=== PATIENT | female | born 1985 | race Caucasian/White ===

== ENCOUNTER 2017-05-19 14:57 | Emergency (ER) | payer BC, SELFPAY ==
[2017-05-19 15:15] VITALS: BP 135/89; PULSE 110; RESP 22; TEMP 37.1; O2SAT 100; BMI 36.2
[2017-05-19 15:24] LABS: UTC Influenza A Antigen Negative (Negative); UTC Influenza B Antigen Negative (Negative)
[2017-05-19 15:40] VITALS: BP 135/89; PULSE 110; RESP 20; TEMP 37.1
--- NOTE | 2017-05-19 15:43 | HMH.EDUTC ---
[facility] [place] Disposition Clinical Impression: Sinusitis Qualifiers: Sinusitis location: unspecified location Chronicity: unspecified Qualified Code(s): J32.9 - Chronic sinusitis, unspecified Disposition: Home, Self-Care Condition on Discharge: Good Instructions: Sinusitis, Sinus Headache, DI for Sinusitis Additional Instructions: Start antibiotic. Sinus infections may take 2-3 days to notice much improvement so be sure to use conservative measures as discussed for symptoms Flonase 2 spray in each nostril daily to help with nasal congestion, sinus an ear pressure/inflammation Lots of Fluids Sleep elevated Humidifer/vaporizer Augmentin can cause GI effects. Probiotics may help to prevent these symptoms Follow up with family doctor in 24-48 hours if no improvement or worsening of symptoms Straight to ER if any life threatening symptoms Prescriptions: Brompheniramine/Pseudoephed/Dm [Bromfed DM Cough Syrup 5mL] 10 ml PO Q4HP PRN #350 ml PRN Reason: Cough Amoxicillin/Potassium Clav [Augmentin 875-125 Tablet] 1 tab PO Q12H #14 tab Fluticasone Propionate [Flonase 50mcg nasal spray 16gm] 2 spr NS DAILY #1 bottle predniSONE [Prednisone 20mg Tab] 20 mg PO BID #10 tab Referrals: Regino Oliva MD [Primary Care Provider] - Forms: Work/School Release Time of Disposition: 15:59 Medical Decision Making - Medical Records Medical records reviewed: Yes: I reviewed the patient's medical records. - Lucian Inquiry Pt receiving controlled substance: No Lucian was queried for this patient: No Vital Signs: 05/19/17 15:15 05/19/17 15:40 Temperature 98.8 F 98.8 F Temperature Source Temporal Artery Scan Pulse Rate 110 H Pulse Rate [Right] 110 H Respiratory Rate 22 20 Blood Pressure 135/89 Blood Pressure [Right Arm] 135/89 Blood Pressure Mean [Right Arm] 104 Blood Pressure Source [Right Arm] Automatic Cuff Blood Pressure Position [Right Arm] Sitting 02 Sat by Pulse Oximetry 100 Oxygen Delivery Method Room Air - Lab Data Lab results reviewed: Yes: I reviewed the patient's lab results. Lab Results 05/19/17 15:20: Influenza Type A Ag Negative, Influenza Type B Ag Negative Orders (Tests/Meds): ED MEDICATIONS Discontinued Medications Generic Name Dose Route Start Last Admin Trade Name Freq PRN Reason Stop Dose Admin Ibuprofen 600 mg 03/19/18 15:52 Motrin 600mg Tablet PO 05/19/17 15:53 ONCE ONE [facility] [place] HPI - General Stated complaint: chills, head ache, dizzy, Time Seen by Provider: 05/19/17 15:30 Mode of Arrival: Ambulatory Source of Information: Patient Limitations: No Limitations Description of Symptoms (Recalled from Triage Doc. by RN): HEADACHE, FEVER, ACHES TODAY HEENT Symptoms (Recalled from RN notes): Yes Resp Symptoms (Recalled from RN notes): No Skin Symptoms (Recalled from RN notes): No MS Symptoms (Recalled from RN notes): No Functional Status (Recalled from RN notes): N - History of Present Illness Provider Complaint: Patient state that she has not been feeling well for several days State that this morning she began running a fever, having chills, feeling pressure in her forehead and around her eyes, having headache and sinus pain and pressure State that as the day progressed she continued to get worse States that she has continued to have the pressure like feeling behind her eyes - Related Data Home Medications Medication Instructions Recorded Confirmed Levothyroxine Sodium [Synthroid 200 mcg PO DAILY 05/19/17 05/19/17 100mcg (0.1mg) tablet] Previous Rx's Medication Instructions Recorded Amoxicillin/Potassium Clav 1 tab PO Q12H #14 tab 05/19/17 [Augmentin 875-125 Tablet] Brompheniramine/Pseudoephed/Dm 10 ml PO Q4HP PRN #350 ml 05/19/17 [Bromfed DM Cough Syrup 5mL] Fluticasone Propionate [Flonase 2 spr NS DAILY #1 bottle 05/19/17 50mcg nasal spray 16gm] predniSONE [Prednisone 20mg 20 mg PO BID #10 tab 05/19/17 Tab] Allergies
--- NOTE | 2017-05-19 15:50 | ED_ITS ---
[facility] [place] Clinical Impression: Sinusitis Qualifiers: Sinusitis location: unspecified location Chronicity: unspecified Qualified Code (s): J32.9 - Chronic sinusitis, unspecified Disposition: Home, Self-Care Condition on Discharge: Good Instructions: Sinusitis, Sinus Headache, DI for Sinusitis Additional Instructions: Start antibiotic. Sinus infections may take 2-3 days to notice much improvement so be sure to use conservative measures as discussed for symptoms Flonase 2 spray in each nostril daily to help with nasal congestion, sinus an ear pressure/inflammation Lots of Fluids Sleep elevated Humidifer/vaporizer Augmentin can cause GI effects. Probiotics may help to prevent these symptoms Follow up with family doctor in 24-48 hours if no improvement or worsening of symptoms Straight to ER if any life threatening symptoms Prescriptions: Brompheniramine/Pseudoephed/Dm [Bromfed DM Cough Syrup 5mL] 10 ml PO Q4HP PRN # 350 ml PRN Reason: Cough Amoxicillin/Potassium Clav [Augmentin 875-125 Tablet] 1 tab PO Q12H #14 tab Fluticasone Propionate [Flonase 50mcg nasal spray 16gm] 2 spr NS DAILY #1 bottle predniSONE [Prednisone 20mg Tab] 20 mg PO BID #10 tab Referrals: Regino Oliva MD [Primary Care Provider] - Forms: Work/School Release Time of Disposition: 15:59 Medical Decision Making - Medical Records Medical records reviewed: Yes: I reviewed the patient's medical records. - Lucian Inquiry Pt receiving controlled substance: No Lucian was queried for this patient: No Vital Signs: 05/19/17 15:15 05/19/17 15:40 Temperature 98.8 F 98.8 F Temperature Source Temporal Artery Scan Pulse Rate 110 H Pulse Rate [Right] 110 H Respiratory Rate 22 20 Blood Pressure 135/89 Blood Pressure [Right Arm] 135/89 Blood Pressure Mean [Right Arm] 104 Blood Pressure Source [Right Arm] Automatic Cuff Blood Pressure Position [Right Arm] Sitting 02 Sat by Pulse Oximetry 100 Oxygen Delivery Method Room Air - Lab Data Lab results reviewed: Yes: I reviewed the patient's lab results. Lab Results 05/19/17 15:20: Influenza Type A Ag Negative, Influenza Type B Ag Negative Orders (Tests/Meds): ED MEDICATIONS Discontinued Medications Generic Name Dose Route Start Last Admin Trade Name Freq PRN Reason Stop Dose Admin Ibuprofen 600 mg 03/19/18 15:52 Motrin 600mg Tablet PO 05/19/17 15:53 ONCE ONE [facility] [place] HPI - General Stated complaint: chills, head ache, dizzy, Time Seen by Provider: 05/19/17 15:30 Mode of Arrival: Ambulatory Source of Information: Patient Limitations: No Limitations Description of Symptoms (Recalled from Triage Doc. by RN): HEADACHE, FEVER, ACHES TODAY HEENT Symptoms (Recalled from RN notes): Yes Resp Symptoms (Recalled from RN notes): No Skin Symptoms (Recalled from RN notes): No MS Symptoms (Recalled from RN notes): No Functional Status (Recalled from RN notes): N - History of Present Illness Provider Complaint: Patient state that she has not been feeling well for several days State that this morning she began running a fever, having chills, feeling pressure in her forehead and around her eyes, having headache and sinus pain and pressure State that as the day progressed she continued to get worse States that she has continued to have the pressure like feeling behind her eyes
== END 2017-05-19 16:05 | disposition home or self-care (01) ==
PROVIDERS: Emergency Provider Nurse Practitioner; Family Provider Internal Medicine Adolescent Medicine; PCP Internal Medicine Adolescent Medicine
DX: J32.9 Chronic sinusitis, unspecified (principal); Z91.040 Latex allergy status
CPT/HCPCS: 87804; 99201

== ENCOUNTER → 2017-05-27 12:21 | Outpatient (CLI) | payer BC, SELFPAY ==
[2017-05-27 13:30] LABS: Alanine Aminotransferase 27 U/L (12-78); Albumin Level 3.3 gm/dL (3.4-5.0); Albumin/Globulin Ratio 0.9 (1.1-1.8); Alkaline Phosphatase 63 U/L (46-116); Anion Gap 10.3 mEq/L (5-15); Aspartate Amino Transferase 19 U/L (15-37); Bilirubin,Total 0.3 mg/dL (0.2-1.0); Blood Urea Nitrogen 9 mg/dL (7-18); Calcium 8.4 mg/dL (8.5-10.1); Carbon Dioxide 27 mmol/L (21.0-32.0); Chloride 103 mmol/L (98-107); Creatinine,Serum 0.75 mg/dL (0.55-1.02); Estimated Glomerular Filt Rate 89 ml/min (>60); GFR (African American) 108 ML/MIN (>60); Globulin 3.8 gm/dl (1.3-3.2); Potassium 4.3 mmoL/L (3.5-5.1); Sodium 136 mmol/L (136-145); Thyroid Stimulating Hormone 41.19 uIU/ml (0.358-3.740); Total Protein,Serum 7.1 gm/dL (6.4-8.2)
[2017-05-27 13:39] LABS: Glucose 83 mg/dL (74-106)
[2017-05-28 15:48] LABS: Vitamin D 25 Hydroxy 13.5 ng/mL (30.0-100.0)
== END ==
PROVIDERS: Visit Provider Internal Medicine Adolescent Medicine
DX: E03.9 Hypothyroidism, unspecified (principal); E55.9 Vitamin D deficiency, unspecified
CPT/HCPCS: 36415; 80053; 82652; 84443

== ENCOUNTER → 2018-04-15 10:36 | Outpatient (CLI) | payer BC, SELFPAY ==
[2018-04-15 11:13] LABS: Basophils % 0.6 % (0.1-2.0); Eosinophils # 0.3 K/mm3 (0.0-0.4); Eosinophils % 3.8 % (0.1-12.0); Hematocrit 35.3 % (37.0-47.0); Hemoglobin 10.7 g/dL (12.2-16.2); Lymphocytes # 1.9 K/mm3 (0.7-4.5); Lymphocytes % 28.8 % (10-50); Mean Corpuscular HGB Conc 30.4 g/dL (31.8-35.4); Mean Corpuscular Hemoglobin 22.3 pg (27.0-31.2); Mean Corpuscular Volume 73.4 fl (81-99); Mean Platelet Volume 6.5 fl (7.4-10.4); Monocytes # 0.3 K/mm3 (0.1-1.0); Monocytes % 3.8 % (1.7-9.3); Neutrophils # 4.2 K/mm3 (1.8-7.8); Platelet Count 331 K/mm3 (142-424); Red Cell Distribution Width 15.9 % (11.5-17.5); White Blood Count 6.6 K/mm3 (4.8-10.8)
[2018-04-15 11:52] LABS: Alanine Aminotransferase 29 U/L (12-78); Albumin Level 3.7 gm/dL (3.4-5.0); Alkaline Phosphatase 63 U/L (46-116); Anion Gap 12.2 mEq/L (5-15); Aspartate Amino Transferase 19 U/L (15-37); Bilirubin,Total 0.4 mg/dL (0.2-1.0); Blood Urea Nitrogen 7 mg/dL (7-18); Calcium 8.9 mg/dL (8.5-10.1); Carbon Dioxide 28 mmol/L (21.0-32.0); Chloride 104 mmol/L (98-107); Chol/HDL Ratio 5.7 (1-3.5); Cholesterol 177 mg/dL (140-200); Creatinine,Serum 0.94 mg/dL (0.55-1.02); Estimated Glomerular Filt Rate 68 ml/min (>60); Ferritin 4 ng/mL (8-388); GFR (African American) 82 ML/MIN (>60); Globulin 3.8 gm/dl (1.3-3.2); Glucose 90 mg/dL (74-106); HDL Cholesterol 31 mg/dL (29-89); LDL Cholesterol 82 mg/dL (0-130); Potassium 4.2 mmoL/L (3.5-5.1); Sodium 140 mmol/L (136-145); Total Protein,Serum 7.5 gm/dL (6.4-8.2); Triglycerides 320 mg/dL (30-200); VLDL Cholesterol 64 mg/dL (0-40)
[2018-04-15 12:19] LABS: Thyroid Stimulating Hormone 177.53 uIU/ml (0.358-3.740)
[2018-04-15 14:34] LABS: Free T4 (Free Thyroxine) 0.83 ng/dl (0.76-1.46)
[2018-04-16 05:11] LABS: Iron 27 ug/dL (27-159); UIBC 360 ug/dL (131-425)
[2018-04-16 07:50] LABS: Iron Saturation 7 % (15-55); Vitamin B12 165 pg/mL (232-1245)
== END ==
PROVIDERS: Nurse Practitioner Family; Visit Provider Nurse Practitioner Family
DX: Z00.00 Encounter for general adult medical examination without abnormal findings (principal); E03.9 Hypothyroidism, unspecified; D64.9 Anemia, unspecified
CPT/HCPCS: 36415; 80053; 80061; 82607; 82728; 83540; 83550; 84439; 84443; 85025

== ENCOUNTER → 2018-05-11 09:47 | Outpatient (CLI) | payer BC, SELFPAY ==
[2018-05-11 11:23] LABS: Thyroid Stimulating Hormone 0.97 uIU/ml (0.358-3.740)
[2018-05-12 09:43] LABS: Folate 9.4 ng/mL (>3.0); Prolactin 27.1 ng/mL (4.8-23.3)
[2018-05-13 15:00] LABS: Intrinsic Factor Abs, Serum 1.1 AU/mL (0.0-1.1)
== END ==
PROVIDERS: Visit Provider Nurse Practitioner Family
DX: D50.9 Iron deficiency anemia, unspecified (principal); E53.8 Deficiency of other specified B group vitamins; R79.89 Other specified abnormal findings of blood chemistry
CPT/HCPCS: 36415; 82746; 84146; 84443; 86340

== ENCOUNTER → 2018-05-26 10:49 | Outpatient (CLI) | payer BC, SELFPAY ==
--- NOTE | 2018-05-26 10:52 | MR_ITS ---
MR head/brain wo/w con HISTORY: ITS.REASON: ELEVATED PROLACTIN LEVEL, headache, dizziness, blurred vision ORDERING PHYSICIAN: Myranda Nevarez PATIENT AGE: 32 years Comparison: None TECHNIQUE: Standard multiplanar multiecho sequences are performed without and with gadolinium enhancement. Thin section pre- and post enhanced images obtained of the pituitary with dynamic imaging.. 23 mL is ProHance given IV FINDINGS: No midline shift, mass effect, intracranial hemorrhage, or hydrocephalus is evident. No intra or extra-axial lesions apparent. There are a few small T2 hyperintensities in the deep white matter of the frontal lobes nonspecific. The cerebellopontine angle, cerebellum, and brainstem are unremarkable. No enhancing lesions are evident. No restricted diffusion. The craniocervical junction has an unremarkable appearance. There is moderate mucosal edema of the left aspect of the sphenoid sinus. No mastoid effusion. On the dynamic enhanced images of the pituitary gland there is a small 5 x 3 x 2 mm area of nonenhancement involving the inferior and right aspect of the pituitary gland consistent with a microadenoma. This does not cause deviation of the pituitary stalk and becomes much less apparent on the delayed images. No other significant anomalies are evident. IMPRESSION: The findings are consistent with a pituitary microadenoma involving the right aspect of the pituitary gland inferiorly measuring 5 x 3 x 2 mm. Consider 6 month follow-up to confirm stability
--- NOTE | 2018-05-26 12:04 | HMH.ITSHM ---
Current Home Medications as stated by this patient Azalia Aminah Celaya or community representative. []VITAMIN C B-12 LEVOXYTHRYOXINE IRON
== END ==
PROVIDERS: PCP Nurse Practitioner Family; Visit Provider Nurse Practitioner Family
DX: E22.9 Hyperfunction of pituitary gland, unspecified (principal)
CPT/HCPCS: 70553; A9576

== ENCOUNTER → 2019-04-22 13:27 | Outpatient (CLI) | payer BC, SELFPAY ==
--- NOTE | 2019-04-22 13:28 | US_ITS ---
PROCEDURE: US TRANSVAGINAL CLINICAL INDICATION: Pt having extremely heavy painful periods COMPARISON: PTV US PELVIS-TRANSVAGINAL ONLY from 12/14/2015 FINDINGS: UTERUS: 9.7 x 6cmx 5cm with a combined endometrial thickness of 13.4mm fluid is seen within the endo cervical region of the uterus. A focal hyper echoic nodule is seen within the endometrial canal in the fundal region 3.8 x 7.1 by 5.3 millimeters suspicious for an endometrial polyp. This could potentially represent a blood clot. A heterogeneous left lateral uterine myometrial mass 3.1 x 2.4 x 2.4 centimeters is noted with some peripheral and increased color Doppler blood flow. Atypical fibroid is suspected. LEFT OVARY: 3cmx2.8 x1.4cm with a volume of 5.5ml. RIGHT OVARY: 3cmx 1kzw0tz with a volume of 8.7ml. Color Doppler blood flow to both ovaries is noted. No abnormal adnexal mass or fluid collection is apparent. IMPRESSION: Abnormally thickened endometrium with possible polyp versus is echogenic blood clot. Left lateral myometrial mass likely fibroid. Dictated by: Jace Harris 04/22/2019 17:21 Electronically signed by Jace Harris in [place] 04/22/2019 17:21
== END ==
PROVIDERS: PCP Nurse Practitioner Family; Visit Provider Nurse Practitioner Obstetrics & Gynecology
DX: N92.0 Excessive and frequent menstruation with regular cycle (principal); N94.6 Dysmenorrhea, unspecified
CPT/HCPCS: 76830

== ENCOUNTER → 2019-08-18 10:12 | Outpatient (CLI) | payer BC, SELFPAY ==
--- NOTE | 2019-08-18 10:33 | MR_ITS ---
PROCEDURE: MR LUMBAR SPINE WO CON CLINICAL INDICATION: LUMBAR RADICULOPATHY Recent fall with injury and pain, right sided pain numbness and tingling, low back pain COMPARISON: ABDPELW/O CT ABD PELVIS W/O CONTRAST from 09/18/2015 LS5 LUMBAR SPINE 5 VIEWS from 05/07/2016 BRAINWW MR head/brain wo/w con from 05/26/2018 TECHNIQUE: Standard multiplanar multiecho sequences are performed without contrast. 3-D MIP and myelographic images are also rendered and reviewed FINDINGS: There is normal alignment. The spinal cord ends at the T12 level. L1-L2 and L2-L3 have an unremarkable appearance. L3-L4: Degenerative disc disease with mild bulging disc and small broad-based central disc protrusion. There is facet and ligamentum hypertrophy with mild bilateral lateral recess and foraminal narrowing. L4-5: Degenerative disc disease with bulging disc slightly eccentric toward the left along with facet and ligamentum hypertrophy with mild bilateral foraminal narrowing. L5-S1: 4 mm anterolisthesis of L5 with bulging disc. There does appear to be bilateral spondylitic defects at L5 with bony hypertrophy at the area of the defect. The bony hypertrophy is slightly greater on the right IMPRESSION: 1. L3-L4: Degenerative disc disease with mild bulging disc and small broad-based central disc protrusion. There is facet and ligamentum hypertrophy with mild bilateral lateral recess and foraminal narrowing. 2. L4-5: Degenerative disc disease with bulging disc slightly eccentric toward the left along with facet and ligamentum hypertrophy with mild bilateral foraminal narrowing. 3. L5-S1: 4 mm anterolisthesis of L5 with bulging disc. There does appear to be bilateral spondylitic defects at L5 with bony hypertrophy at the area of the defect. The bony hypertrophy is slightly greater on the right 4. No extruded herniated disc or canal stenosis Dictated by: Manuel Rivera MD 08/19/2019 13:37 Electronically signed by Manuel Rivera MD in [place] 08/19/2019 13:37
== END ==
PROVIDERS: PCP Nurse Practitioner Family; Visit Provider Internal Medicine Adolescent Medicine
DX: M54.16 Radiculopathy, lumbar region (principal)
CPT/HCPCS: 72148; 76376

== ENCOUNTER 2019-09-24 13:00 | Outpatient (RCR) | payer BC, SELFPAY ==
--- NOTE | 2019-09-01 15:51 | HMH.PTOPEV ---
PT Outpatient Evaluation Rehab PT Outpatient Evaluation Start: 09/01/19 15:35 Freq: Status: Active Protocol: Document 09/01/19 15:35 DEVANTE (Rec: 09/01/19 15:51 DEVANTE [id number]) Electronically Signed By Domenic Umanzor, PT 09/01/19 15:35 Outpatient Therapy Subjective History Subjective History Patient is a 34 year old female presenting to outpatient PT with reports of lumbar spine pain with RLE radicular symptoms to the R knee starting approximately 2 months ago. Pt reports that she experienced a fall approx 3 weeks prior to symptom onset in which she landed on her R buttocks. SI special tests negative. Most recent imaging indicates L3-S1 DDD with minimal bulging discs and L5/ S1 anteriolisthesis. Comorbidities include hx of pituitary gland tumor, thyroid excision and cholecystectomy. Chief Complaint Pain,Stiff,Paresthesia Symptom Type Shooting Symptoms Relieved By Rest/Positioning,Ice,OTC Meds, Prescription Meds Symptoms Aggravated By Standing,Physical Activity, Walking Prior Functional Limitations None Current Functional Limitations Reaching,Lifting,Housework, Sleeping,Standing,Squatting, Recreation Activity,Walking, Bending/Stooping Symptom Description Constant but Variable Level of pain today (0-10) 2 Pain scale - at its best (0-10) 2 Pain scale - at its worst (0-10) 10 Lumbopelvic Eval Posture Thoracic Spine Posture Standing Position Increased Kyphosis Lumbar Spine Posture Standing Position Increased Lordosis Assistive device Assistive Devices None / NA Palapation tenderness bilateral lumbar spinal tenderness Yes: L3-S1 3/4 paraspinal tenderness Yes: L 3-S1 3/4 buttock tenderness Yes: R 3/4 Accessory Movement L3 bilateral L4 bilateral L5 bilateral S1 right Range of Motion Lumbar Spine Active Flexion Range of 35 inc radic Motion (degrees) Lumbar Spine Active Extension Range of 20 Motion (degrees) Left Lumbar Spine Lateral Flexion Active 22 Range of Motion (degrees) Right Jesica
== END 2019-09-24 13:05 | disposition home or self-care (01) ==
LOC: PT 13:00
PROVIDERS: PCP Nurse Practitioner Family; Visit Provider Internal Medicine Adolescent Medicine
DX: M54.16 Radiculopathy, lumbar region (principal)
CPT/HCPCS: 97010; 97012; 97014; 97033; 97035; 97110; 97163; G0283

== ENCOUNTER 2020-11-10 09:59 | Emergency (ER) | payer BC, SELFPAY ==
[2020-11-10 11:07] VITALS: BP 121/86; PULSE 81; RESP 18; TEMP 37; O2SAT 99; BMI 41.8
[2020-11-10 11:47] LABS: UTC Strep Screen (Rapid) Negative (Negative)
--- NOTE | 2020-11-10 11:58 | HMH.EDUTC ---
[facility] [place] Clinical Impression: Viral syndrome, Exposure to COVID-19 virus Pharyngitis Qualifiers: Pharyngitis/tonsillitis etiology: unspecified etiology Qualified Code(s): J02.9 - Acute pharyngitis, unspecified Disposition: Home, Self-Care Condition on Discharge: Good Instructions: DI for COVID-19 (Suspected or Confirmed ), Preventing the Spread of Coronavirus Discharge Instructions Additional Instructions: Drink plenty of fluids. Take tylenol or ibuprofen for pain or fever. Take the medications as directed. Follow up with your regular doctor. GO TO THE ER FOR ANY WORSENING SYMPTOMS Quarantine until you know the results of your covid-19 test. If it is positive, the health department should call you and give you further instructions about your length of Quarantine and other things. Notify your school or workplace of your results and follow their instructions regarding return to work/school. Prescriptions: Benzonatate [Tessalon Perle 100mg Cap] 100 mg PO TIDP PRN #30 cap PRN Reason: Cough Transmission Status: Received by [id number] Ondansetron [Zofran 4mg ODT] 4 mg PO DAILYP PRN #12 tab PRN Reason: Nausea Transmission Status: Received by [id number] Referrals: Myranda Nevarez APRN [Primary Care Provider] - Time of Disposition: 12:05 Medical Decision Making - Medical Records Medical records reviewed: No: I reviewed the patient's medical records. - Lucian Inquiry Pt receiving controlled substance: No Vital Signs: 11/10/20 11:07 11/10/20 12:25 Temperature 98.6 F 98.6 F Temperature Source Oral Pulse Rate 81 Pulse Rate [Left] 81 Respiratory Rate 18 18 Blood Pressure 121/86 Blood Pressure [Right Arm] 121/86 Blood Pressure Mean [Right Arm] 97 02 Sat by Pulse Oximetry 99 - Lab Data Lab Results 11/10/20 11:46: Strep Scn [facility] Negative 11/10/20 12:16: SARS-CoV-2 IgG Ab (Rapid) Negative, SARS-CoV-2 IgM Ab (Rapid) Negative Orders (Tests/Meds): ORDERS Category Date Time Status Strep Screen Confirmation Stat Micro 11/10/20 11:46 Received [facility] [place] - General Stated complaint: sore throat,headache,diarrhea Time Seen by Provider: 11/10/20 11:40 Mode of Arrival: Ambulatory Source of Information: Patient Limitations: No Limitations Description of Symptoms (Recalled from Triage Doc. by RN): pt c/o MONTANO, body aches, low grade fever, and diarrhea. pt states she has felt sick since friday. HEENT Symptoms (Recalled from RN notes): Yes (MONTANO) Resp Symptoms (Recalled from RN notes): No Skin Symptoms (Recalled from RN notes): No MS Symptoms (Recalled from RN notes): No Functional Status (Recalled from RN notes): myalgia and low grade fever - History of Present Illness Provider Complaint: She states that for the past 2 days, she has began to feel bad. She denies any known covid-19 exposure, but she does work at the [employer] system. She has been vaccinated against covid. - Related Data Home Medications Medication Instructions Recorded Confirmed Levothyroxine Sodium 200 mcg PO DAILY 12/29/18 04/19/19 [Levothyroxine 200mcg (0.2mg) Tab] Levothyroxine Sodium 25 mcg PO DAILY 12/29/18 04/19/19 [Levothyroxine 25mcg (0.025mg) Tab] propranolol 10 mg tablet 10 mg PO BID 02/16/19 04/19/19 Previous Rx's Medication Instructions Recorded Dicyclomine HCl [Bentyl 10mg 10 mg PO TID PRN #15 cap 04/28/19 capsule] Ondansetron [Zofran 4mg ODT] 4 mg PO Q8HP PRN #20 tab.rapdis 04/28/19 Benzonatate [Tessalon Perle 100mg 100 mg PO TIDP PRN #30 cap 11/10/20 Cap] Ondansetron [Zofran 4mg ODT] 4 mg PO DAILYP PRN #12 tab 11/10/20 Allergies Allergy/AdvReac Type Severity Reaction Status Date / Time latex Allergy Intermediate I-ITCHING Verified 04/19/19 15:00 hydrocodone [From LORTAB] Allergy Mild fever Verified 04/19/19 15:00 - Worker's Comp Is this a Worker's Comp case?: No H History - Hepatitis A Screen Drug
[2020-11-10 12:25] VITALS: BP 121/86; PULSE 81; RESP 18; TEMP 37
[2020-11-10 13:05] LABS: Coronavirus 19 IgG Antibody Negative (Negative); Coronavirus 19 IgM Antibody Negative (Negative)
== END 2020-11-10 12:40 | disposition home or self-care (01) ==
PROVIDERS: Emergency Provider Nurse Practitioner Family; PCP Nurse Practitioner Family
DX: B34.9 Viral infection, unspecified (principal); J02.9 Acute pharyngitis, unspecified; Z20.822 Contact with and (suspected) exposure to COVID-19
CPT/HCPCS: 86328; 87880; 99202; G0463

== ENCOUNTER → 2020-11-13 11:30 | Outpatient (CLI) | payer BC, SELFPAY ==
[2020-11-13 11:46] LABS: Basophils % 0.6 % (0.1-2.0); Eosinophils # 0.1 K/mm3 (0.0-0.4); Eosinophils % 1.8 % (0.1-12.0); Hemoglobin 11.8 g/dL (12.2-16.2); Lymphocytes # 1.6 K/mm3 (0.7-4.5); Lymphocytes % 43.4 % (10-50); Mean Corpuscular HGB Conc 30.3 g/dL (31.8-35.4); Mean Corpuscular Hemoglobin 22.7 pg (27.0-31.2); Mean Corpuscular Volume 75.2 fl (81-99); Mean Platelet Volume 7.3 fl (7.4-10.4); Monocytes # 0.1 K/mm3 (0.1-1.0); Monocytes % 2.7 % (1.7-9.3); Neutrophils # 1.9 K/mm3 (1.8-7.8); Neutrophils % 51.5 % (37.0-80.0); Platelet Count 255 K/mm3 (142-424); Red Blood Count 5.19 M/mm3 (4.20-5.40); Red Cell Distribution Width 16.6 % (11.5-17.5); White Blood Count 3.7 K/mm3 (4.8-10.8)
[2020-11-13 13:25] LABS: Chloride 103 mmol/L (98-107); Potassium 4.3 mmoL/L (3.5-5.1); Sodium 141 mmol/L (136-145)
[2020-11-13 13:27] LABS: Amylase 71 U/L (30-110)
[2020-11-13 13:28] LABS: Alanine Aminotransferase 17 U/L (12-78); Albumin Level 3.9 g/dl (3.5-5.0); Albumin/Globulin Ratio 1.1 (1.1-1.8); Alkaline Phosphatase 68 U/L (38-126); Anion Gap 14.3 mEq/L (5-15); Aspartate Amino Transferase 39 U/L (14-36); Bilirubin,Total 0.2 mg/dl (0.2-1.3); Blood Urea Nitrogen 10 mg/dl (7-17); Calcium 8.6 mg/dl (8.4-10.2); Carbon Dioxide 28 mmol/L (22.0-30.0); Estimated Glomerular Filt Rate 70 ml/min (>60); GFR (African American) 85 ML/MIN (>60); Globulin 3.4 g/dL (1.3-3.2); Glucose 90 mg/dl (74-100); Lipase 84 U/L (23-300); Total Protein,Serum 7.3 g/dl (6.3-8.2)
== END ==
PROVIDERS: Visit Provider Nurse Practitioner Family
DX: R10.10 Upper abdominal pain, unspecified (principal); R19.7 Diarrhea, unspecified
CPT/HCPCS: 36415; 80053; 82150; 83690; 85025

== ENCOUNTER 2021-02-18 12:37 | Emergency (ER) | payer BC, SELFPAY ==
[2021-02-18] VITALS (12 sets, daily range): BP systolic 114–146; BP diastolic 79–93; PULSE 79–93; RESP 12–19; TEMP 36.6–36.9; O2SAT 95–100; BMI 41.1
--- NOTE | 2021-02-18 12:41 | ECG_ITS ---
APPROVED REPORT Exam: Resting ECG HR:84 bpm ECG Measurements Heart Rate 84 AXES CA 160 P 50 QRSd 82 QRS 27 QT 392 T 25 QTc 463 Conclusion Normal sinus rhythm Nonspecific T wave abnormality Prolonged QT Abnormal ECG Electronically signed by : Regino Oliva MD 02/20/2021 21:07:45
--- NOTE | 2021-02-18 12:44 | XR_ITS ---
PROCEDURE INFORMATION: Exam: XR Chest Exam date and time: 02/18/2021 12:44 PM Age: 35 years old Clinical indication: Sternal or substernal pain; Additional info: Chest pain TECHNIQUE: Imaging protocol: XR of the chest. Views: 1 view. COMPARISON: CR CXR CHEST(2 VIEWS-NOT PORTABLE) 06/19/2016 12:06 PM FINDINGS: Lungs: Unremarkable. No consolidation. Pleural spaces: Unremarkable. No pleural effusion. No pneumothorax. Heart/Mediastinum: Unremarkable. No cardiomegaly. Bones/joints: Unremarkable. IMPRESSION: No acute findings.
--- NOTE | 2021-02-18 12:46 | HMH.EDGENADL ---
ED Disposition Clinical Impression: Atypical chest pain Disposition: Home, Self-Care Condition on Discharge: Good Instructions: DI for Atypical Chest Pain Additional Instructions: Additional instructions for CHEST PAIN: See your physician as soon as possible for further evaluation. Return immediately if worsening chest pain, vomiting, shortness of breath, fever, coughing of blood. Referrals: Myranda Nevarez APRN [Primary Care Provider] - - Critical Care Critical Care Time: No Attestation: On , the high probability of a clinically significant, sudden or life threatening deterioration of the following system(s) required my full and direct attention, intervention and personal management. The time I documented below is in addition to time spent performing reported procedures but includes the following listed in this critical care notation. Medical Decision Making - Lucian Inquiry Pt receiving controlled substance: No Vital Signs: 02/18/21 12:38 02/18/21 13:00 02/18/21 13:15 Temperature 98.5 F Temperature Source Oral Pulse Rate 89 81 Pulse Rate [Radial] 93 H Respiratory Rate 18 19 12 Blood Pressure 137/82 126/79 Blood Pressure [Right Arm] 146/93 H Blood Pressure Mean Blood Pressure Mean [Right Arm] 110 Blood Pressure Position [Right Arm] Sitting 02 Sat by Pulse Oximetry 98 95 99 Oxygen Delivery Method Room Air 02/18/21 13:30 02/18/21 13:34 02/18/21 14:00 Temperature Temperature Source Pulse Rate 86 79 79 Pulse Rate [Radial] Respiratory Rate 16 14 17 Blood Pressure 122/80 122/80 133/89 Blood Pressure [Right Arm] Blood Pressure Mean 97 102 Blood Pressure Mean [Right Arm] Blood Pressure Position [Right Arm] 02 Sat by Pulse Oximetry 98 98 99 Oxygen Delivery Method 02/18/21 14:30 02/18/21 15:00 02/18/21 15:30 Temperature Temperature Source Pulse Rate 85 81 80 Pulse Rate [Radial] Respiratory Rate 15 17 15 Blood Pressure 124/84 114/82 124/86 Blood Pressure [Right Arm] Blood Pressure Mean 94 89 91 Blood Pressure Mean [Right Arm] Blood Pressure Position [Right Arm] 02 Sat by Pulse Oximetry 98 99 99 Oxygen Delivery Method 02/18/21 16:00 Temperature Temperature Source Pulse Rate 85 Pulse Rate [Radial] Respiratory Rate 17 Blood Pressure 123/87 Blood Pressure [Right Arm] Blood Pressure Mean 99 Blood Pressure Mean [Right Arm] Blood Pressure Position [Right Arm] 02 Sat by Pulse Oximetry 100 Oxygen Delivery Method - Lab Data Lab Results 02/18/21 12:43: WBC 8.2, RBC 4.99, Hgb 11.7 L, Hct 37.2, MCV 74.6 L, MCH 23.5 L, MCHC 31.4 L, RDW 16.6, Plt Count 437 H, MPV 7.0 L, Neut % (Auto) 62.9, Lymph % (Auto) 28.3, [place] % (Auto) 3.9, Eos % (Auto) 4.1, Baso % (Auto) 0.7, Neut # (Auto) 5.1, Lymph # (Auto) 2.3, [place] # (Auto) 0.3, Eos # (Auto) 0.3, Baso # (Auto) 0.1 02/18/21 12:43: Sodium 139, Potassium 3.5, Chloride 104, Carbon Dioxide 25, Anion Gap 13.5, BUN 9, Creatinine 1.00, Estimated Creat Clear 132, Estimated GFR 62, Est GFR ( Amer) 75, Glucose 86, Calcium 9.0, Troponin I 0.01 02/18/21 12:43: D-Dimer 0.46 02/18/21 15:25: Troponin I < 0.01 Result diagrams: 02/18/21 12:43 02/18/21 12:43 Orders (Tests/Meds): ORDERS Category Date Time Status Troponin I Q3H Lab 02/18/21 18:45 Ordered - Radiology Data #1 Image(s): Chest Image Reviewed: Yes I reviewed the patient's radiology image, Yes I have reviewed radiologist's interpretation Preliminary Findings: Normal/NAD PROCEDURE INFORMATION: Exam: XR Chest Exam date and time: 02/18/2021 12:44 PM Age: 35 years old Clinical indication: Sternal or substernal pain; Additional info: Chest pain TECHNIQUE: Imaging protocol: XR of the chest. Views: 1 view. COMPARISON: CR CXR CHEST(2 VIEWS-NOT PORTABLE) 06/19/2016 12:06 PM FINDINGS: Lungs: Unremarkable. No consolidation. Pleural spaces: Unremarkable. No pleural effusion. No pneumothorax.
[2021-02-18 12:58] LABS: Basophils # 0.1 K/mm3 (0-0.2); Basophils % 0.7 % (0.1-2.0); Eosinophils # 0.3 K/mm3 (0.0-0.4); Eosinophils % 4.1 % (0.1-12.0); Hematocrit 37.2 % (37.0-47.0); Hemoglobin 11.7 g/dL (12.2-16.2); Lymphocytes # 2.3 K/mm3 (0.7-4.5); Lymphocytes % 28.3 % (10-50); Mean Corpuscular HGB Conc 31.4 g/dL (31.8-35.4); Mean Corpuscular Hemoglobin 23.5 pg (27.0-31.2); Mean Corpuscular Volume 74.6 fl (81-99); Monocytes # 0.3 K/mm3 (0.1-1.0); Monocytes % 3.9 % (1.7-9.3); Neutrophils # 5.1 K/mm3 (1.8-7.8); Neutrophils % 62.9 % (37.0-80.0); Platelet Count 437 K/mm3 (142-424); Red Blood Count 4.99 M/mm3 (4.20-5.40); Red Cell Distribution Width 16.6 % (11.5-17.5); White Blood Count 8.2 K/mm3 (4.8-10.8)
[2021-02-18 13:08] LABS: Anion Gap 13.5 mEq/L (5-15); Blood Urea Nitrogen 9 mg/dl (7-17); Carbon Dioxide 25 mmol/L (22.0-30.0); Chloride 104 mmol/L (98-107); Creatinine Clearance Estimated 132 mL/min (50-200); Estimated Glomerular Filt Rate 62 ml/min (>60); GFR (African American) 75 ML/MIN (>60); Glucose 86 mg/dl (74-100); Potassium 3.5 mmoL/L (3.5-5.1); Sodium 139 mmol/L (136-145)
[2021-02-18 13:13] LABS: D-Dimer 0.46 ug/mL (0.0-0.5)
[2021-02-18 13:28] LABS: Troponin I 0.01 ng/ml (0.00-0.034)
--- NOTE | 2021-02-18 14:00 | PC.NURSE ---
PT RESTING QUIETLY OFFERS NO C/O AT PRESENT
--- NOTE | 2021-02-18 15:00 | PC.NURSE ---
PT UPDATED ON PLAN OF CARE
[2021-02-18 16:24] LABS: Troponin I < 0.01 ng/ml (0.00-0.034)
== END 2021-02-18 16:47 | disposition home or self-care (01) ==
PROVIDERS: Emergency Provider Emergency Medicine; PCP Nurse Practitioner Family
DX: R07.89 Other chest pain (principal); Z91.040 Latex allergy status; R11.0 Nausea
CPT/HCPCS: 71045; 80048; 84484; 85025; 85378; 93005; 99283

== ENCOUNTER → 2022-03-06 08:57 | Outpatient (CLI) | payer BC, SELFPAY ==
--- NOTE | 2022-03-06 09:01 | MR_ITS ---
FINAL REPORT TECHNIQUE: Multiplanar MR, without and with gadolinium enhancement CLINICAL HISTORY: Pituitary adenoma COMPARISON: CT head 12/29/2018 FINDINGS: Diffusion sequences show no signal abnormality to indicate acute infarct. The pituitary is normal in size with stalk midline. However, this was performed as routine brain MRI and not optimized under pituitary mass protocol. No mass, hemorrhage or edema is seen. Ventricles are normal. Major vascular flow voids are intact. Following contrast administration, no mass or abnormal enhancement is seen. IMPRESSION: Unremarkable MR evaluation the brain with contrast Reviewed, Interpreted and Dictated by Iris López MD Transcribed by Lauren Spaulding Authenticated and [facility]
--- NOTE | 2022-03-06 09:01 | MR_ITS ---
FINAL REPORT TECHNIQUE: 3-D [id number] sequences without contrast CLINICAL HISTORY: ANEURYSM COMPARISON: None FINDINGS: There is a small saccular aneurysm arising from the medial aspect of the distal left cavernous ICA. This measures 3 mm. No other aneurysm identified. There is stenosis of the distal intercranial right vertebral artery. The remaining central intercranial major branches are widely patent. MCAs and ACAs are unremarkable. Basilar artery is widely patent. motion picture set up worker are intact. 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 Reviewed, Interpreted and Dictated by Iris López MD Transcribed by Lauren Spaulding Authenticated and [facility]
== END ==
LOC: RAD 08:57
PROVIDERS: PCP Nurse Practitioner Family; Visit Provider Neurological Surgery
DX: D35.2 Benign neoplasm of pituitary gland (principal); I72.9 Aneurysm of unspecified site
CPT/HCPCS: 70544; 70553; A9576

== ENCOUNTER → 2022-05-01 07:18 | Outpatient (CLI) | payer BC, SELFPAY ==
[2022-05-01 08:04] LABS: Basophils # 0.1 K/mm3 (0-0.2); Basophils % 1.1 % (0.1-2.0); Eosinophils # 0.3 K/mm3 (0.0-0.4); Eosinophils % 5.5 % (0.1-12.0); Hematocrit 28.4 % (37.0-47.0); Hemoglobin 8.5 g/dL (12.2-16.2); Lymphocytes # 1.6 K/mm3 (0.7-4.5); Lymphocytes % 30.4 % (10-50); Mean Corpuscular HGB Conc 29.9 g/dL (31.8-35.4); Mean Corpuscular Hemoglobin 20.1 pg (27.0-31.2); Mean Corpuscular Volume 67.1 fl (81-99); Monocytes # 0.2 K/mm3 (0.1-1.0); Monocytes % 3.8 % (1.7-9.3); Neutrophils # 3.2 K/mm3 (1.8-7.8); Neutrophils % 59.3 % (37.0-80.0); Platelet Count 385 K/mm3 (142-424); Red Blood Count 4.24 M/mm3 (4.20-5.40); Red Cell Distribution Width 16.3 % (11.5-17.5); White Blood Count 5.4 K/mm3 (4.8-10.8)
[2022-05-01 08:32] LABS: Alanine Aminotransferase 21 U/L (12-78); Albumin Level 3.6 g/dl (3.5-5.0); Albumin/Globulin Ratio 1.2 (1.1-1.8); Alkaline Phosphatase 54 U/L (38-126); Anion Gap 9.8 mEq/L (5-15); Aspartate Amino Transferase 26 U/L (14-36); Bilirubin,Total 0.4 mg/dl (0.2-1.3); Blood Urea Nitrogen 8 mg/dl (7-17); Calcium 8.6 mg/dl (8.4-10.2); Carbon Dioxide 23 mmol/L (22.0-30.0); Chloride 108 mmol/L (98-107); Estimated Glomerular Filt Rate 80 ml/min (>60); GFR (African American) 97 ML/MIN (>60); Globulin 2.9 g/dL (1.3-3.2); Glucose 110 mg/dl (74-100); Potassium 3.8 mmoL/L (3.5-5.1); Sodium 137 mmol/L (136-145); Total Protein,Serum 6.5 g/dl (6.3-8.2)
[2022-05-01 08:49] LABS: Free T4 (Free Thyroxine) 2.07 ng/dl (0.78-2.19)
[2022-05-01 09:04] LABS: Thyroid Stimulating Hormone 0.15 uIU/mL (0.465-4.68)
[2022-05-01 09:23] LABS: Vitamin B12 165 pg/mL (239-931)
== END ==
PROVIDERS: PCP Nurse Practitioner Family; Visit Provider Nurse Practitioner Family
DX: E03.9 Hypothyroidism, unspecified (principal); G57.11 Meralgia paresthetica, right lower limb
CPT/HCPCS: 36415; 80053; 82607; 84439; 84443; 85025

== ENCOUNTER 2022-05-07 12:32 | Emergency (ER) | payer BC, SELFPAY ==
[2022-05-07] VITALS (9 sets, daily range): BP systolic 94–124; BP diastolic 63–79; PULSE 80–129; RESP 16–18; TEMP 37.2–38.9; O2SAT 95–99; BMI 39.9
[2022-05-07 12:53] LABS: Coronavirus 19, PCR Not Detected (NotDetected); Influenza A, PCR Not Detected (NotDetected); Influenza B, PCR Not Detected (NotDetected); Microscopic, Urine URINE MICROSCOPIC (MICROSCOPIC)
[2022-05-07 12:54] LABS: Appearance,Urine SL CLOUDY (Clear); Blood, Urine 2+ (Negative); Color,Urine YELLOW (Yellow); Glucose,Urine (UA) Negative (Negative); Ketones,Urine Negative (Negative); Leukocyte Esterase,Urine 3+ (Negative); Nitrate,Urine Negative (Negative); Protein,Urine Negative (Negative); Specific Gravity, Urine >= 1.030 (1.005-1.030); Urobilinogen,Urine 0.2 EU/dl (0.2)
[2022-05-07 12:57] LABS: Bilirubin,Urine 1+ (Negative)
--- NOTE | 2022-05-07 13:09 | XR_ITS ---
FINAL REPORT CLINICAL HISTORY: fever FINDINGS: Two views of the chest were obtained. The heart size and pulmonary vascularity are within normal limits. The mediastinum is normal. No acute pulmonary abnormality is identified. There is no pneumothorax. The bony thorax is intact. IMPRESSION: No active cardiopulmonary disease. Reviewed, Interpreted and Dictated by Kyle Subramanian III, MD Transcribed by Rose Lindsay Authenticated and . [facility]
--- NOTE | 2022-05-07 13:09 | CT_ITS ---
FINAL REPORT TECHNIQUE: Postcontrast axial images through the abdomen and pelvis were performed. This study was performed with techniques to keep radiation doses as low as reasonably achievable, (ALARA). Individualized dose reduction techniques using automated exposure control or adjustment of mA and/or kV according to the patient's size were employed. CLINICAL HISTORY: fever, abdo tenderness L side FINDINGS: Abdomen: The lung bases are clear. The liver is normal in size and attenuation. The patient is status post cholecystectomy. The spleen is enlarged measuring 13 cm. The adrenals are normal. The pancreas is unremarkable. The kidneys enhance appropriately. The aorta is normal in caliber. No free fluid or adenopathy is identified. No findings for mechanical bowel obstruction are identified. Pelvis: The appendix is normal. There is mild diffuse colon wall thickening, may represent mild colitis. The urinary bladder is unremarkable. No free fluid, free air, abscess or adenopathy is identified. Note is made of bilateral L5 pars defects. IMPRESSION: Diffuse colon wall thickening, may represent colitis. Splenomegaly. Reviewed, Interpreted and Dictated by Kyle Subramanian III, MD Transcribed by Danielle Everett Authenticated and [facility]
--- NOTE | 2022-05-07 13:23 | HMH.EDGENADL ---
Discharge Plan Disposition Patient Disposition: Home, Self-Care Condition: Good Prescriptions Prescriptions: New cefdinir 300 mg capsule 300 mg PO BID 10 Days Qty: 20 0RF No Action propranolol 10 mg tablet 10 mg PO BID levothyroxine 25 MCG tablet 25 mcg PO DAILY levothyroxine 200 MCG tablet 200 mcg PO DAILY ondansetron 4 MG tablet,disintegrating 4 mg PO Q8HP PRN (Reason: Nausea) Qty: 20 0RF dicyclomine 10 MG capsule 10 mg PO TID PRN (Reason: Cramping) Qty: 15 0RF ondansetron 4 MG tablet,disintegrating 4 mg PO DAILYP PRN (Reason: Nausea) Qty: 12 0RF benzonatate 100 MG capsule 100 mg PO TIDP PRN (Reason: Cough) Qty: 30 0RF Referrals Follow up/Referrals: Myranda Nevarez APRN [Primary Care Provider] - See instructions Activity Restrictions/Add. Instructions Additional Instructions/Restrictions: Additional instructions for URINARY TRACT INFECTION: Take antibiotic as prescribed, begin tomorrow. See your physician in 2-3 days for follow up and culture results. Return immediately if you have an uncontrollable fever greater than 102 degrees, severe back or abdominal pain, inability to urinate, or repetitive vomiting. Clinical Impressions Clinical Impression: Pyelonephritis Instructions Patient Instructions: DI for Kidney Infection Discharge ED Provider: Chris Ta General Adult HPI General Chief complaint: Fever Stated complaint: shaky,vomiting,lightheaded Time Seen by Provider: 05/07/22 13:05 Mode of Arrival: Wheelchair Source of Information: Patient Limitations: No Limitations Description of Symptoms (Recalled from ER Triage Doc. by RN): Pt reports headache, vomitting x2 episodes, body aches, fever. Pt reports symptoms began approx 11pm lastnight. History of Present Illness HPI narrative: Patient states that she began getting ill last night. She began having rigors. They resolved but recurred again today at 11 AM. Found to have a fever here. He has had vomiting x2. She has a headache. Denies rhinorrhea, sore throat, cough. Denies diarrhea, abdominal pain. Denies urinary symptoms such as frequency or dysuria. She just finished her last menstrual cycle yesterday. No known exposures to any illnesses. Related Data Home Medications Medication Instructions Recorded Confirmed levothyroxine 200 mcg tablet 200 mcg PO DAILY THYROID DISEASE 12/29/18 04/19/19 levothyroxine 25 mcg tablet 25 mcg PO DAILY THYROID DISEASE 12/29/18 04/19/19 propranolol 10 mg tablet 10 mg PO BID 02/16/19 04/19/19 Previous Rx's Medication Instructions Recorded dicyclomine 10 mg capsule 10 mg PO TID PRN Cramping #15 caps 04/28/19 ondansetron 4 mg disintegrating 4 mg PO Q8HP PRN Nausea ##20 04/28/19 tablet benzonatate 100 mg capsule 100 mg PO TIDP PRN Cough #30 caps 11/10/20 ondansetron 4 mg disintegrating 4 mg PO DAILYP PRN Nausea #12 tabs 11/10/20 tablet cefdinir 300 mg capsule 300 mg PO BID 10 days #20 caps 05/07/22 Allergies Allergy/AdvReac Type Severity Reaction Status Date / Time latex Allergy Intermediate I-ITCHING Verified 04/19/19 15:00 hydrocodone [From LORTAB] Allergy Mild fever Verified 04/19/19 15:00 PFSH PFS Disclaimer: The information contained in this section may have been updated after the patient was seen, as this information can be updated by other users. Social History Smoking Status: Never smoker alcohol intake: never substance use type: denies use current occupational status: other Travel in the last 8 weeks: None ROS Obtained: Yes Systems reviewed as appropriate & no additional complaints except as documented Constitutional Constitutional: Reports chills, Reports fever(s), Reports headache(s) and Denies weakness ENT Ears, Nose, Mouth, and Throat: Reports headache(s), Denies nasal discharge and Denies sore throat Cardiovascular Cardiovascular: Denies chest pain Respiratory Respiratory: Denies shortness of breath and D
[2022-05-07 13:25] LABS: Bacteria,Urine 1+ /lpf; RBC,Urine Occasional #/hpf (0-3)
[2022-05-07 13:35] LABS: Basophils % 0.2 % (0.1-2.0); Eosinophils # 0.1 K/mm3 (0.0-0.4); Eosinophils % 1.2 % (0.1-12.0); Hematocrit 29.3 % (37.0-47.0); Hemoglobin 9.2 g/dL (12.2-16.2); Lymphocytes # 0.4 K/mm3 (0.7-4.5); Lymphocytes % 5.6 % (10-50); Mean Corpuscular HGB Conc 31.5 g/dL (31.8-35.4); Mean Corpuscular Hemoglobin 20.2 pg (27.0-31.2); Mean Corpuscular Volume 64.2 fl (81-99); Mean Platelet Volume 7.8 fl (7.4-10.4); Monocytes # 0.2 K/mm3 (0.1-1.0); Monocytes % 2.9 % (1.7-9.3); Neutrophils # 6.8 K/mm3 (1.8-7.8); Neutrophils % 90.1 % (37.0-80.0); Platelet Count 461 K/mm3 (142-424); Red Blood Count 4.56 M/mm3 (4.20-5.40); Red Cell Distribution Width 17.1 % (11.5-17.5); White Blood Count 7.6 K/mm3 (4.8-10.8)
[2022-05-07 13:36] LABS: MANUAL DIFFERENTIAL MANUAL DIFFERENTIAL (MANUAL DIFF)
[2022-05-07 13:40] LABS: Chloride 107 mmol/L (98-107); Potassium 3.8 mmoL/L (3.5-5.1); Sodium 136 mmol/L (136-145)
[2022-05-07 13:43] LABS: Alanine Aminotransferase 51 U/L (12-78); Albumin Level 3.8 g/dl (3.5-5.0); Albumin/Globulin Ratio 1.2 (1.1-1.8); Alkaline Phosphatase 72 U/L (38-126); Anion Gap 11.8 mEq/L (5-15); Aspartate Amino Transferase 78 U/L (14-36); Bilirubin,Total 0.8 mg/dl (0.2-1.3); Blood Urea Nitrogen 8 mg/dl (7-17); Carbon Dioxide 21 mmol/L (22.0-30.0); Creatinine Clearance Estimated 159 mL/min (50-200); Estimated Glomerular Filt Rate 80 ml/min (>60); GFR (African American) 97 ML/MIN (>60); Globulin 3.3 g/dL (1.3-3.2); Total Protein,Serum 7.1 g/dl (6.3-8.2)
[2022-05-07 13:44] LABS: Calcium 8.2 mg/dl (8.4-10.2); Glucose 102 mg/dl (74-100)
[2022-05-07 13:56] LABS: Hypochromasia 2+; Lymphocytes % 7 % (10-50); Monocytes % 3 % (2-9); Neutrophils % 90 % (42-76); Total Cells Counted 100
[2022-05-07 13:57] LABS: Anisocytosis 1+; Microcytosis 2+; Platelet Estimate Slight Increase
--- NOTE | 2022-05-07 13:59 | PC.NURSE ---
rad staff aware of pt ct scan
--- NOTE | 2022-05-07 14:04 | PC.NURSE ---
pt to CT via wheelchair
--- NOTE | 2022-05-07 15:05 | PC.NURSE ---
checked on pt at this time, pt sleeping, mother at BS
--- NOTE | 2022-05-07 15:35 | PC.NURSE ---
patient assisted in repositioning and given pillow. No other needs at this time
--- NOTE | 2022-05-07 15:43 | PC.NURSE ---
Addendum entered by Janelle Champion, NANCY 05/07/22 15:43: rad called back states no results back on pt ct yet Original Note: contacted rad to check on status of ct result, waiting chief compressor station engineer back from radiology
--- NOTE | 2022-05-07 16:20 | PC.NURSE ---
preliminary ct results given to JENNIE VALERIO
--- NOTE | 2022-05-07 17:08 | PC.NURSE ---
checked on pt at this time, family at BS. pt given ice chips, call light within reach.
--- NOTE | 2022-05-07 17:09 | PC.NURSE ---
JENNIE VALERIO at
== END 2022-05-07 17:20 | disposition home or self-care (01) ==
PROVIDERS: Emergency Provider Emergency Medicine; PCP Nurse Practitioner Family
DX: N10 Acute pyelonephritis (principal); Z20.822 Contact with and (suspected) exposure to COVID-19
CPT/HCPCS: 71046; 74177; 80053; 81001; 83605; 85007; 85025; 87040; 87086; 96361; 96374; 96375; 99285; C9803; J0696; J2405; Q9967; U0003; U0005

== ENCOUNTER 2023-01-12 16:11 | Emergency (ER) | payer BC, SELFPAY ==
[2023-01-12 16:35] VITALS: BP 127/88; PULSE 85; RESP 18; TEMP 36.9; O2SAT 99; BMI 39.6
[2023-01-12 16:55] LABS: UTC Strep Screen (Rapid) Negative (Negative)
--- NOTE | 2023-01-12 17:00 | EXP.UTC ---
Discharge Plan Disposition Patient Disposition: Home, Self-Care Condition: Good Prescriptions Prescriptions: New amoxicillin 875 mg tablet 875 mg PO BID Qty: 20 0RF methylprednisolone [Medrol (Lance)] 4 mg tablets,dose pack See Rx Instructions .Route .COMPLEX 6 Days Qty: 21 0RF Rx Instructions: taper pack; No Action levothyroxine 200 MCG tablet 200 mcg PO DAILY Referrals Follow up/Referrals: Myranda Nevarez APRN [Primary Care Provider] - See instructions Activity Restrictions/Add. Instructions Additional Instructions/Restrictions: *Monitor Temp, Over the counter Motrin or Tylenol as directed/as needed Tylenol every 4 hours and Motrin every 6 hours (as long as your family doctor has told you that you can take it) for fever or pain. and straight to ER if unable to lower temp less than 101.0 after medication given *Warm salt water gargles may help to soothe the throat *Throat Lozenges? *Warm fluids like tea with honey may help to soothe the throat? *Sleep elevated *Humidifier/Vaporizer Your throat swab was sent for culture. Those results are typically sent to your primary care. Be sure to follow up in 2-3 days with your family doctor/primary care physician if no improvement so they can review those result and treat if necessary. If you don?t have a primary care doctor, I recommend you get one but in the mean time, you will have to return to a walk in clinic Follow up IMMEDIATELY for new or worsening symptoms or no Noticeable improvement over the next 48-72 hours. 911 for difficulty breathing or swallowing Clinical Impressions Clinical Impression: Otitis media Qualifiers: Otitis media type: unspecified Laterality: right Qualified Code(s): H66.91 - Otitis media, unspecified, right ear Instructions Patient Instructions: Sore Throat, Middle Ear Infection, DI for Laryngitis Discharge ED Provider: Angella Salas [facility] General Stated complaint: Throat hurts and body aches. Mode of Arrival: Ambulatory Source of Information: Patient Limitations: No Limitations Time Seen by Provider: 01/12/23 17:00 Description of Symptoms (Recalled from Triage Doc. by RN): PATIENT C/O CHILLS, BODY ACHES, HEADACHE, AND LOSING VOICE SINCE THIS MORNING HEENT Symptoms (Recalled from RN notes): Yes Resp Symptoms (Recalled from RN notes): No Skin Symptoms (Recalled from RN notes): No MS Symptoms (Recalled from RN notes): No Functional Status (Recalled from RN notes): WNL History of Present Illness Provider Complaint: Patient states that she has been having pain in her right ear then this morning she woke up she was feeling achy, sore throat and loss her voice States that as the day went on she has continued to not feel well and her ear is hurting worse so she came in to get checked Related Data Home Medications Medication Instructions Recorded Confirmed levothyroxine 200 mcg tablet 200 mcg PO DAILY THYROID DISEASE 12/29/18 01/12/23 Previous Rx's Medication Instructions Recorded amoxicillin 875 mg tablet 875 mg PO BID #20 tabs 01/12/23 methylprednisolone 4 mg tablets in See Rx Instructions .Route 01/12/23 a dose pack (Medrol (Lance)) .COMPLEX 6 days #21 tabs Allergies Allergy/AdvReac Type Severity Reaction Status Date / Time latex Allergy Intermediate I-ITCHING Verified 04/19/19 15:00 hydrocodone [From LORTAB] Allergy Mild fever Verified 04/19/19 15:00 Worker's Comp Is this a Worker's Comp case?: No [facility] Disclaimer: The information contained in this section may have been updated after the patient was seen, as this information can be updated by other users. Medical History (Updated 01/12/23 @ 17:04 by Angella Salas APRN) Thyroid disease Surgical History (Updated 01/12/23 @ 16:50 by Ayaka Perry RN) History of cholecystectomy History of tubal ligation Status post removal of thyroid nodule Social History Smoking Status: Yahir
[2023-01-12 17:09] VITALS: BP 127/88; PULSE 85; RESP 18; TEMP 36.9; O2SAT 99
== END 2023-01-12 17:12 | disposition home or self-care (01) ==
PROVIDERS: Emergency Provider Nurse Practitioner; PCP Nurse Practitioner Family
DX: H66.91 Otitis media, unspecified, right ear (principal); R07.0 Pain in throat; R51.9 Headache, unspecified; E03.9 Hypothyroidism, unspecified
CPT/HCPCS: 87880; 99212; 99214; G0463

== ENCOUNTER 2023-07-24 08:04 | Outpatient (CLI) | payer BC, SELFPAY ==
[2023-07-24 08:20] LABS: Basophils # 0.1 K/mm3 (0-0.2); Eosinophils # 0.3 K/mm3 (0.0-0.4); Eosinophils % 5.6 % (0.1-12.0); Hematocrit 30.2 % (37.0-47.0); Lymphocytes # 1.7 K/mm3 (0.7-4.5); Lymphocytes % 27.6 % (10-50); Mean Corpuscular HGB Conc 29.7 g/dL (31.8-35.4); Mean Corpuscular Hemoglobin 19.1 pg (27.0-31.2); Mean Corpuscular Volume 64.4 fl (81-99); Monocytes # 0.3 K/mm3 (0.1-1.0); Monocytes % 4.8 % (1.7-9.3); Neutrophils # 3.7 K/mm3 (1.8-7.8); Neutrophils % 61.1 % (37.0-80.0); Platelet Count 406 K/mm3 (142-424); Red Blood Count 4.69 M/mm3 (4.20-5.40); Red Cell Distribution Width 17.8 % (11.5-17.5)
[2023-07-24 09:47] LABS: Alanine Aminotransferase 18 U/L (12-78); Albumin Level 3.8 g/dl (3.5-5.0); Albumin/Globulin Ratio 1.2 (1.1-1.8); Alkaline Phosphatase 58 U/L (38-126); Aspartate Amino Transferase 27 U/L (14-36); Bilirubin,Total 0.5 mg/dl (0.2-1.3); Blood Urea Nitrogen 15 mg/dl (7-17); Calcium 9.1 mg/dl (8.4-10.2); Carbon Dioxide 24 mmol/L (22.0-30.0); Chloride 106 mmol/L (98-107); Chol/HDL Ratio 4.6 (1-3.5); Cholesterol 174 mg/dl (140-200); Estimated Glomerular Filt Rate 79 ml/min (>60); GFR (African American) 96 ML/MIN (>60); Globulin 3.1 g/dL (1.3-3.2); Glucose 83 mg/dl (74-100); HDL Cholesterol 38 mg/dl (40-60); Sodium 140 mmol/L (136-145); Total Protein,Serum 6.9 g/dl (6.3-8.2); Triglycerides 164 mg/dl (30-150); VLDL Cholesterol 33 mg/dL (0-40)
[2023-07-24 09:58] LABS: Direct LDL Cholesterol 102.14 mg/dL (100-129)
[2023-07-24 10:02] LABS: Free Thyroxine Index 3.3 ug/dL (5.93-13.13); Triiodothryronine (T3) Uptake 30 % (23.5-40.5)
[2023-07-24 10:05] LABS: 25-OH Vitamin D, Total 19.8 ng/mL (30-100)
[2023-07-24 10:35] LABS: Vitamin B12 205 pg/mL (239-931)
[2023-07-24 14:03] LABS: Hemoglobin A1C 5.4 % (4.0-6.0)
[2023-07-24 16:49] LABS: Iron 34 ug/dL (37-170)
[2023-07-24 16:59] LABS: Total Iron Binding Capacity 410 ug/dL (265-497)
[2023-07-24 17:20] LABS: Folate > 20.00 ng/mL
[2023-07-24 17:25] LABS: Ferritin 3.98 ng/ml (6.24-137)
[2023-07-25 06:58] LABS: Prolactin 19.6 ng/mL (4.8-33.4)
== END 2023-07-24 23:59 | disposition home or self-care (01) ==
LOC: LAB 08:05
PROVIDERS: PCP Nurse Practitioner Family; Visit Provider Nurse Practitioner Family
DX: Z00.00 Encounter for general adult medical examination without abnormal findings (principal); D35.2 Benign neoplasm of pituitary gland; E89.0 Postprocedural hypothyroidism; E55.9 Vitamin D deficiency, unspecified; E53.8 Deficiency of other specified B group vitamins; D50.9 Iron deficiency anemia, unspecified
CPT/HCPCS: 36415; 80053; 80061; 82306; 82607; 82728; 82746; 83036; 83540; 83550; 84146; 84436; 84443; 84479; 85025

== ENCOUNTER 2023-08-27 08:27 | Outpatient (CLI) | payer BC, SELFPAY ==
[2023-08-27 08:46] VITALS: BP 128/73; PULSE 80; RESP 18; TEMP 36.4; O2SAT 99
[2023-08-27] MEDS: IRON SUCROSE COMPLEX 200 MG in 0.9 % SODIUM CHLORIDE 100 ML 220 MG IV (08:46)
[2023-08-27] MEDS: SODIUM CHLORIDE 0.9% 10ML FLUSH SYRINGE 10 ML IV (08:46)
[2023-08-27] MEDS: SODIUM CHLORIDE 0.9% 50ML BAG 50 ML IV (08:46)
[2023-08-27 09:36] VITALS: BP 112/61; PULSE 80; RESP 18; O2SAT 99
== END 2023-08-27 09:40 | disposition home or self-care (01) ==
LOC: INF 08:28
PROVIDERS: PCP Nurse Practitioner Family; Visit Provider Internal Medicine Medical Oncology
DX: D50.0 Iron deficiency anemia secondary to blood loss (chronic) (principal); Z79.899 Other long term (current) drug therapy
CPT/HCPCS: 96365; J1756

== ENCOUNTER 2023-09-03 08:19 | Outpatient (CLI) | payer BC, SELFPAY ==
[2023-09-03 08:37] VITALS: BP 128/74; PULSE 68; RESP 18; TEMP 36.3; O2SAT 100
[2023-09-03] MEDS: IRON SUCROSE COMPLEX 200 MG in 0.9 % SODIUM CHLORIDE 100 ML 220 MG IV (08:37)
[2023-09-03] MEDS: SODIUM CHLORIDE 0.9% 50ML BAG 50 ML IV (08:37)
[2023-09-03] MEDS: SODIUM CHLORIDE 0.9% 10ML FLUSH SYRINGE 10 ML IV (08:37)
[2023-09-03 09:22] VITALS: BP 110/59; PULSE 69; RESP 18; O2SAT 99
== END 2023-09-03 09:25 | disposition home or self-care (01) ==
LOC: INF 08:20
PROVIDERS: PCP Nurse Practitioner Family; Visit Provider Internal Medicine Medical Oncology
DX: D50.0 Iron deficiency anemia secondary to blood loss (chronic) (principal); Z79.899 Other long term (current) drug therapy
CPT/HCPCS: 96365; J1756

== ENCOUNTER 2023-09-10 07:57 | Outpatient (CLI) | payer BC, SELFPAY ==
[2023-09-10] MEDS: IRON SUCROSE COMPLEX 200 MG in 0.9 % SODIUM CHLORIDE 100 ML 220 MG IV (08:31)
[2023-09-10 08:32] VITALS: BP 111/63; PULSE 72; RESP 18; TEMP 36.8; O2SAT 99
[2023-09-10] MEDS: SODIUM CHLORIDE 0.9% 50ML BAG 50 ML IV (08:32)
[2023-09-10] MEDS: SODIUM CHLORIDE 0.9% 10ML FLUSH SYRINGE 10 ML IV (08:32)
[2023-09-10 09:18] VITALS: BP 110/68; PULSE 62; RESP 18; O2SAT 99
== END 2023-09-10 09:24 | disposition home or self-care (01) ==
LOC: INF 07:57
PROVIDERS: PCP Nurse Practitioner Family; Visit Provider Internal Medicine Medical Oncology
DX: D50.0 Iron deficiency anemia secondary to blood loss (chronic) (principal); Z79.899 Other long term (current) drug therapy
CPT/HCPCS: 96365; J1756

== ENCOUNTER 2023-09-15 09:44 | Outpatient (CLI) | payer BC, SELFPAY ==
[2023-09-15 10:00] VITALS: BP 123/68; PULSE 69; RESP 18; O2SAT 97
[2023-09-15] MEDS: SODIUM CHLORIDE 0.9% 50ML BAG 50 ML IV (10:00)
[2023-09-15] MEDS: IRON SUCROSE COMPLEX 200 MG in 0.9 % SODIUM CHLORIDE 100 ML 220 MG IV (10:00)
[2023-09-15 10:38] VITALS: BP 106/70; PULSE 64; RESP 18; O2SAT 98
== END 2023-09-15 10:38 | disposition home or self-care (01) ==
LOC: INF 09:45
PROVIDERS: PCP Nurse Practitioner Family; Visit Provider Internal Medicine Medical Oncology
DX: D50.0 Iron deficiency anemia secondary to blood loss (chronic) (principal); Z79.899 Other long term (current) drug therapy
CPT/HCPCS: 96365; J1756

== ENCOUNTER 2023-09-29 08:01 | Outpatient (CLI) | payer BC, SELFPAY ==
[2023-09-29] MEDS: 0.9 % SODIUM CHLORIDE 50 ML 100 ML IV (08:34)
[2023-09-29] MEDS: IRON SUCROSE COMPLEX 200 MG in 0.9 % SODIUM CHLORIDE 100 ML 220 MG IV (08:35)
[2023-09-29 08:37] VITALS: BP 119/83; PULSE 76; RESP 18; O2SAT 97
[2023-09-29 09:21] VITALS: BP 116/67; PULSE 68; RESP 18; O2SAT 97
== END 2023-09-29 09:21 | disposition home or self-care (01) ==
LOC: INF 08:01
PROVIDERS: PCP Nurse Practitioner Family; Visit Provider Internal Medicine Medical Oncology
DX: D50.9 Iron deficiency anemia, unspecified (principal)
CPT/HCPCS: 96365; J1756

== ENCOUNTER 2023-11-08 11:31 | Outpatient (CLI) | payer BC, SELFPAY ==
[2023-11-08 11:57] LABS: Basophils # 0.1 K/mm3 (0-0.2); Basophils % 0.9 % (0.1-2.0); Eosinophils # 0.3 K/mm3 (0.0-0.4); Eosinophils % 4.4 % (0.1-12.0); Hematocrit 41.7 % (37.0-47.0); Hemoglobin 12.6 g/dL (12.2-16.2); Lymphocytes # 2.2 K/mm3 (0.7-4.5); Lymphocytes % 35.1 % (10-50); Mean Corpuscular HGB Conc 30.1 g/dL (31.8-35.4); Mean Corpuscular Volume 79.7 fl (81-99); Mean Platelet Volume 7.3 fl (7.4-10.4); Monocytes # 0.2 K/mm3 (0.1-1.0); Monocytes % 3.7 % (1.7-9.3); Neutrophils # 3.5 K/mm3 (1.8-7.8); Neutrophils % 55.9 % (37.0-80.0); Platelet Count 331 K/mm3 (142-424); Red Blood Count 5.23 M/mm3 (4.20-5.40); Red Cell Distribution Width 21.3 % (11.5-17.5); White Blood Count 6.3 K/mm3 (4.8-10.8)
[2023-11-08 12:44] LABS: Iron 46 ug/dL (37-170)
[2023-11-08 12:53] LABS: Total Iron Binding Capacity 363 ug/dL (265-497)
[2023-11-08 13:20] LABS: Ferritin 8.39 ng/ml (6.24-137)
== END 2023-11-08 23:59 | disposition home or self-care (01) ==
LOC: LAB 11:33
PROVIDERS: PCP Nurse Practitioner Family; Visit Provider Internal Medicine Medical Oncology
DX: D50.0 Iron deficiency anemia secondary to blood loss (chronic) (principal)
CPT/HCPCS: 36415; 82728; 83540; 83550; 85025

== ENCOUNTER 2024-02-21 11:12 | Outpatient (CLI) | payer BC, SELFPAY ==
[2024-02-21 11:58] LABS: Iron 55 ug/dL (37-170)
[2024-02-21 12:07] LABS: Total Iron Binding Capacity 373 ug/dL (265-497)
[2024-02-21 12:23] LABS: Hematocrit 40.1 % (37.0-47.0); Hemoglobin 12.8 g/dL (12.2-16.2); Lymphocytes % 31.8 % (10-50); Mean Corpuscular HGB Conc 31.9 g/dL (31.8-35.4); Mean Corpuscular Hemoglobin 25.8 pg (27.0-31.2); Mean Corpuscular Volume 80.8 fl (81-99); Platelet Count 281 K/mm3 (142-424); Red Blood Count 4.96 M/mm3 (4.20-5.40); Red Cell Distribution Width 14.2 % (11.5-17.5); White Blood Count 5.6 K/mm3 (4.8-10.8)
[2024-02-21 12:24] LABS: Basophils % 0.7 % (0.1-2.0); Eosinophils # 0.2 K/mm3 (0.0-0.4); Eosinophils % 3.9 % (0.1-12.0); Lymphocytes # 1.8 K/mm3 (0.7-4.5); Monocytes # 0.3 K/mm3 (0.1-1.0); Monocytes % 5.2 % (1.7-9.3); Neutrophils # 3.3 K/mm3 (1.8-7.8)
[2024-02-21 12:35] LABS: Ferritin 5.63 ng/ml (6.24-137)
== END 2024-02-21 23:59 | disposition home or self-care (01) ==
LOC: LAB 11:15
PROVIDERS: PCP Nurse Practitioner Family; Visit Provider Internal Medicine Medical Oncology
DX: D50.0 Iron deficiency anemia secondary to blood loss (chronic) (principal)
CPT/HCPCS: 36415; 82728; 83540; 83550; 85025

== ENCOUNTER 2024-05-25 09:19 | Outpatient (CLI) | payer BC, SELFPAY ==
[2024-05-25 09:34] LABS: Basophils % 0.4 % (0.1-2.0); Eosinophils # 0.3 K/mm3 (0.0-0.4); Eosinophils % 4.1 % (0.1-12.0); Hematocrit 39.5 % (37.0-47.0); Hemoglobin 12.3 g/dL (12.2-16.2); Lymphocytes # 1.9 K/mm3 (0.7-4.5); Lymphocytes % 26.4 % (10-50); Mean Corpuscular HGB Conc 31.1 g/dL (31.8-35.4); Mean Corpuscular Hemoglobin 25.6 pg (27.0-31.2); Mean Corpuscular Volume 82.3 fl (81-99); Mean Platelet Volume 8.7 fl (7.4-10.4); Monocytes # 0.3 K/mm3 (0.1-1.0); Monocytes % 4.6 % (1.7-9.3); Neutrophils # 4.6 K/mm3 (1.8-7.8); Neutrophils % 64.2 % (37.0-80.0); Platelet Count 315 K/mm3 (142-424); Red Cell Distribution Width 15.8 % (11.5-17.5); White Blood Count 7.1 K/mm3 (4.8-10.8)
[2024-05-25 10:09] LABS: Iron 57 ug/dL (37-170)
[2024-05-25 10:18] LABS: Total Iron Binding Capacity 421 ug/dL (265-497)
[2024-05-25 10:44] LABS: Ferritin 6.69 ng/ml (6.24-137)
== END 2024-05-25 23:59 | disposition home or self-care (01) ==
LOC: LAB 09:19
PROVIDERS: PCP Nurse Practitioner Family; Visit Provider Internal Medicine Medical Oncology
DX: D50.0 Iron deficiency anemia secondary to blood loss (chronic) (principal)
CPT/HCPCS: 36415; 82728; 83540; 83550; 85025

== ENCOUNTER 2024-06-19 10:25 | Outpatient (CLI) | payer BC, SELFPAY ==
--- OUTSIDE RECORDS SUMMARY | 2024-06-19 10:28 | XMS_ITS | Data Portability ---
Author Organization [facility] Address [address] [place] [address] Care Team Providers Care House Mover Name Role Phone UMER HER Primary Care Provider APRYL JACOB Senior Staff Accountant [phone] Assessment Encounter Date Assessment Date Assessment LastModified by Organization Details LastModified Time 10/08/2022 10/08/2022 EMG/NCV study reviewed in the office today, independently assessed, and personally discussed with the patient. Discussed that she has evidence of moderate to severe right carpal tunnel syndrome. Incidentally noted was mild left carpal tunnel syndrome which appears to be minimally symptomatic at this time. Regards to her progressive right hand carpal tunnel symptoms, discussion was had with patient in clinic today regarding diagnosis of carpal tunnel syndrome. Treatment options consisting of both conservative management and surgical intervention were discussed. I explained that initial treatment of carpal tunnel syndrome typically consist of conservative measures such as nighttime wrist splinting and activity modifications. If this fails or if the diagnosis is unclear we sometimes can consider a corticosteroid injection. However, if conservative measures fail, symptoms are worsening with a clear diagnosis of carpal tunnel syndrome, and/or there is evidence of severe compression at the carpal canal then surgical carpal tunnel release is recommended. At this time patient has failed conservative management including splinting/bracing , therapy, [id number]-vju-[id number] medication, and ongoing work restrictions. She reports worsening symptoms and has elected to proceed with surgical carpal tunnel release. She will continue modified work work duty pending surgery. Patient will be scheduled for right endoscopic carpal tunnel release pending Worker's Compensation approval. Risk and benefits of the surgical procedure were explained to the patient in clinic today, including but not limited to incomplete symptom relief, recurrence, need for additional procedures, stiffness, damage to surrounding tissues/structure s/nerves/vessels, wound complications, and infection. Patient expressed understanding and all questions were answered to the patient's satisfaction. [email or web address] Not available 10/08/2022 14:08:02 11/12/2022 11/12/2022 Patient will begin OT/HEP and can gradually resume activity with the hand as tolerated at this time. I discussed scar massage with patient in clinic today. Continue on-going work restrictions. Patient will follow-up in [address] Gonzalez, but will call in the interim with any additional questions or concerns. [email or web address] Not available 11/14/2022 15:18:54 12/10/2022 12/10/2022 Patient can continue activity with the hand as tolerated at this time. Continue deep scar massage. Continue with therapy. She will continue ongoing work restrictions to focus on therapeutic recovery and will be allowed to return to work without restrictions to begin work hardening/conditi oning on 12/30/2022. Follow-up in 6 weeks for final assessment and if doing well with no setbacks I will declare her MMI at that time. [email or web address] Not available 12/13/2022 16:26:30 01/21/2023 01/21/2023 Patient can continue activity with the hand as tolerated at this time. She will continue working without restrictions. Can continue home therapy exercises as needed. She has now reached MMI. Patient will follow up in clinic on an as-needed basis should additional questions or concerns arise. [email or web address] Not available 01/21/2023 08:37:08 Plan of Treatment Reminders Order Date Submit Date Provider Last Modified By Organization Details Last Modified Time Details Appointments None record ed. Lab None record ed. Referral None record ed. Procedures None record ed. Surgeries None record ed. Imaging None record ed. Medication Orders None record ed. Patient TargetsNo targets recorded. Patient InstructionsNo instructions recorded. Reason for Referral None Reported. Results Created Date Observation Date Name Description Value Unit Range Abnormal Flag Note LastModifiedBy Organization Detail LastModifiedTime 10/04/19 23 10/03/2022 nerve condu ction study /EMG, upper extre mity (PROC ) No observ ation record ed. [email or web address] Not Available 06/2022 09:19:34 Result Notes None recorded. Problems No Known Problems Procedures Surgical History Date Name Laterality Status Provider Name and Address Organization Details Recorded Time 10/29/19 23 Carpal Tunnel Release, Endoscopic - [place] [address] [place] [address], [phone], [facility] 10/28/2022 08:06:25 01/13/20 19 Endoscopy Nasal; Diagnostic completed CHARLENE MATHUR MD [address] [place] [address], [phone] 01/12/2019 12:27:20 ligation of fallopian tube completed [facility] 06/10/2018 10:22:38 Cholecystectomy completed [facility] 06/10/2018 10:22:52 Thyroid Surgery completed [facility] 06/10/2018 10:23:01 Imaging Results Imaging Date Name Status LastModified by Organiz ation Details LastModified Time 10/03/2022 nerve conduction study/EMG, upper extremity (PROC) completed [id number] Information not available 10/04/2022 09:19:34 Procedure Notes None recorded. Medical Equipment None Reported. Allergies Allergen ID Allergen Name Allergen Category Reaction Reaction Severity Criticality Documentation Date Start Date Code Code System Note Provider Name and Address Organization Details Recorded Time 165223 acetamino phen / hydrocodo ne medicatio n Not available Not available Not available 08/04/2018 11864 2 RxNorm Esme Mouser [facility] 9 14:32:24 989035 acetamino phen / oxycodone medicatio n Not available Not available Not available 08/04/2018 71082 3 RxNorm Esme Mouser [facility] 9 14:33:27 Medications Name Sig Start Date Stop Date Status Note LastModified by Organization Details LastModified Time BD Luer-Collin Syringe 3 mL 23 x 1 08/04 completed Not Available Not Available Not Available amoxicillin 500 mg capsule 01/12 completed Not Available Not Available Not Available methocarbam ol 500 mg tablet 10/08 completed Not Available Not Available Not Available promethazin e-DM 6.25 mg-15 mg/5 mL oral syrup TAKE 5 ML BY MOUTH EVERY 6 HOURS FOR 7 DAYS 10/08 completed Not Available Not Available Not Available Vitamin C 500 mg tablet once daily 10/08 completed Not Available Not Available Not Available trazodone 50 mg tablet 08/04 completed Not Available Not Available Not Available prednisone 20 mg tablet 08/04 completed Not Available Not Available Not Available Zomig 2.5 mg tablet Take by oral route. 10/08 completed Not Available Not Available Not Available sumatriptan 50 mg tablet 01/12 completed Not Available Not Available Not Available tramadol 50 mg tablet TAKE 1 TABLET BY MOUTH EVERY 4 TO 6 HOURS NEEDED FOR SEVERE POST SURGICAL PAIN 12/10 completed Not Available Not Available Not Available meloxicam 7.5 mg tablet TAKE 1 TABLET BY MOUTH ONCE DAILY WITH FOOD REGARDLES S OF PAIN LEVEL FOR 1 WEEK THEN TAKE 1 TAB WITH FOOD NEEDED FOR PAIN RELIEF THEREAFTE R 12/10 completed Not Available Not Available Not Available oxycodone-a cetaminophe n 5 mg-325 mg tablet 01/12 completed Not Available Not Available Not Available Euthyrox 25 mcg tablet TAKE 1 TABLET BY MOUTH ONCE DAILY 10/08 completed Not Available Not Available Not Available propranolol 10 mg tablet 10/08 completed Not Available Not Available Not Available amoxicillin 875 mg tablet TAKE 1 TABLET BY MOUTH TWICE DAILY active Not Available Not Available No t Available cyanocobala min (vit B-12) 1,000 mcg/mL injection solution 08/04 completed Not Available Not Available Not Available oseltamivir 75 mg capsule TAKE 1 CAPSULE BY MOUTH TWICE DAILY FOR 5 DAYS 10/08 completed Not Available Not Available Not Available ferrous sulfate 325 mg (65 mg iron) tablet 08/04 completed Not Available Not Available Not Available ranitidine 300 mg capsule 08/04 completed Not Available Not Available Not Available levothyroxi ne 200 mcg tablet TAKE 1 TABLET BY MOUTH ONCE DAILY FOR 90 DAYS WITH 25 MCG active Not Available Not Available No t Available gabapentin 100 mg capsule TAKE 1 CAPSULE BY MOUTH EVERY DAY AT BEDTIME FOR 7 DAYS 12/10 completed Not Available Not Available Not Available methylpredn isolone 4 mg tablets in a dose pack TAKE DIRECTED ON PACKAGE active Not Available Not Available No t Available Vitamin D2 1,250 mcg (50,000 unit) capsule once weekly 10/08 completed Not Available Not Available Not Available bromphenira mine-pseudo ephedrine-D M 2 mg-30 mg-10 mg/5 mL oral syrup 08/04 completed Not Available Not Available Not Available cefdinir 300 mg capsule TAKE 1 CAPSULE BY MOUTH TWICE DAILY FOR 10 DAYS 10/08 completed Not Available Not Available Not Available fluticasone propionate 50 mcg/actuati on nasal spray,suspe nsion 08/04 completed Not Available Not Available Not Available amoxicillin 875 mg-potassiu m clavulanate 125 mg tablet 08/04 completed Not Available Not Available Not Available Slow Fe 142 mg (45 mg iron) tablet,exte nded release 08/04 completed Not Available Not Available Not Available 28 mg iron-800 mcg tablet TAKE 1 TABLET BY MOUTH ONCE DAILY 10/08 completed Not Available Not Available Not Available Vitals Date Recorded Body height Body mass index (BMI) Body weight Provider Name and Address Organization Details Last Updated DateTime 10/08/2022 162.56 cm 37.6 kg/m2 84913.73 g Hillary Cardoza [facility] 10/08/2022 13:48:44 Date Recorded Body height Body mass index (BMI) Body weight Provider Name and Address Organization Details Last Updated DateTime 11/12/2022 162.56 cm 37.6 kg/m2 38707.73 g [facility] 11/12/2022 10:08:29 Date Recorded Body height Body mass index (BMI) Body weight Provider Name and Address Organization Details Last Updated DateTime 12/10/2022 162.56 cm 37.6 kg/m2 00524.73 g [facility] 12/10/2022 09:48:45 Date Recorded Body height Body mass index (BMI) Body weight Provider Name and Address Organization Details Last Updated DateTime 01/21/2023 162.56 cm 37.6 kg/m2 47611.73 g Jeanette Clark [facility] 01/21/2023 08:13:11 Social History Question Answer Notes LastModified by Organizat ion Details LastModified Time Tobacco Smoking Status Never Smoker Alida darden [facility] 06/10/2018 10:22:26 What Was The Date Of Your Most Recent Tobacco Screening? 08/04/2018 Information n ot available 04/20/2019 Sex: Female Functional Status None recorded. Mental Status None recorded. Family History Relationship Description Onset Age of this Age Resolved Age Notes LastModified by Organization Details LastModified Time Unspecified Relation Malignant neoplastic disease [email or web address] Not available 06/10 10:23:19 Unspecified Relation Diabetes mellitus [email or web address] Not available 06/10 10:23:24 Unspecified Relation Hypertensive disorder [email or web address] Not available 06/10 10:23:29 Unspecified Relation Myocardial infarction [email or web address] Not available 06/01 10:23:35 Medical History Condition Response Hypothyroidism Gynecological HistoryNo gynecological history recorded. Obstetrics History GPAL:G 0 P 0 0 0 0 Past Encounters Encounter ID Performer Location Encounter Start Date Encounter Closed Date Diagnosis/Indication Diagnosis SNOMED-CT Code Diagnosis ICD10 Code Diagnosis Note [id number] ABDON CHOWDHURY MD NEUROSURG [facility] [address] [place] [address] 06/10/2018 09:49:29 06/15/2018 11:05:33 Pituitary microadenoma 746941377 D35.2 -See below for my interpreta tion of the MRI scan. Likely small pituitary microadeno ma. Prolactin level was minimally elevated on previous labs. Plan to repeat a full pituitary panel. Referral to endocrinol ogy. Based on the size, no issues with optic chiasm compressio n. Plan to manage this conservati vely. Educated about the potential for pituitary apoplexy, rare event of permanent visual loss. We will see her back in 6 months with a repeat MRI. [id number] BERNADETTE MCCANN MD ENDOCRINO [facility] [address] [place] [address] 08/04/2018 14:20:25 08/05/2018 08:03:09 Pituitary microadenoma [id number] D35.2 33-year-ol d female patient seen in the office today at the request of Dr. Chowdhury in regards to Pituitary mass evaluation further management . Following recurrent headaches, visual blurring and dizziness and minimally elevated prolactin she had MRI brain on 05/26/2018 which showed 5 mm mass in the right aspect of the pituitary gland consistent with pituitary microadeno ma. Clinically she does not have any manifestat ion of hormonal excess syndromes. repeat laboratory workup showed normal serum prolactin, free T4, IGF-I, FSH and LH. Does not have any features to suggest Lolis syndrome In view of the above she most likely has pituitary incidental ly while which is nonfunctio nicole. I recommende d no further testing or interventi on from endocrine standpoint . She will follow up with Dr. Chowdhury from neurosurge for 6 months follow-up MRI. Patient verbalized understand ing and agreed with the above mentioned plan of care. I would like to thank Dr. Chowdhury for the opportunit y to participat e in the care of this patient. [id number] ABDON [facility]DHURY [facility] [address] [place] [address] 12/15/2018 10:30:27 12/15/2018 16:38:29 Pituitary macroadenoma 899179014 D35.2 -The patient returns to clinic today for pituitary follow-up. Surveillan ce MRI was performed prior to her visit. There is significan t enlargemen t of the tumor compared to the MRI done 6 months prior. The tumor is now greater than twice as large. This informatio n was communicat ed to the patient and her . Based on the growth of the tumor, my recommenda tion is to proceed with a transsphen oidal operation for resection of the tumor. We described the procedure in detail including risks, benefits, expected postoperat gustavo course. The main concern would be a long-term hormone deficit. We will also repeat the pituitary labs to make sure that this remains a nonsecreti ng tumor. Advised that I do not know if her headaches or migraines would improve with the surgery as there is no clear correlatio n between the location of her headaches and the location of the tumor. We reviewed in particular the risk of transsphen oidal surgery including carotid injury, spinal fluid leak, hypopituit rimma. ophtho c/s (VF testing) TSS for pit tumor with stealth (MRI with and CT without) pituitary labs [id number] CHARLENE MATHUR MD ENT [address] [place] [address] 01/12/2019 09:53:25 01/13/2019 09:46:32 Pituitary macroadenoma 737073549 D35.2 reviewed imaging. Agree with endoscopic approach to a transsphen oidal hypophysec tera. Discussed risks and complicati ons. Consent obtained. [id number] HOMERO GONZALEZ MD [facility]THOPEDI [facility] [address] [place] [address] 10/08/2022 13:29:48 10/08/2022 14:13:37 Carpal tunnel syndrome 02162415 G56.01 EMG/NCV (10/03/2022) demonstrat ed moderate to severe right carpal tunnel syndrome and mild left carpal tunnel syndrome. [id number] MAXIMO HUERTA PA-C [facility] [address] [place] [place] [address] 11/12/2022 10:02:41 11/12/2022 10:21:21 Carpal tunnel syndrome 60621664 G56.01 EMG/NCV (10/03/2022) demonstrat ed moderate to severe right carpal tunnel syndrome and mild left carpal tunnel syndrome. s/p right endoscopic carpal tunnel release (DOS: 10/28/22) Postoperative care 74902 9007 Z48.89 s/p right endoscopic carpal tunnel release (DOS: 10/28/22) [id number] HOMERO GONZALEZ MD SURGERY SCHEDULE [address] [place] [address] 10/28/2022 06:36:27 10/28/2022 06:37:09 [id number] HOMERO GONZALEZ MD [facility] [address] [place] [address] 12/10/2022 09:02:53 12/10/2022 10:28:51 Postoperative care [id number] Z48.89 6 weeks s/p right endoscopic carpal tunnel release (DOS: 10/28/22) Carpal ki zeb syndrome 71036709 G56.01 EMG/NCV (10/03/2022) demonstrat ed moderate to severe right carpal tunnel syndrome and mild left carpal tunnel syndrome. Previously s/p right endoscopic carpal tunnel release (DOS: 10/28/22) [id number] HOMERO GONZALEZ MD ORTHOPEDI [facility] [address] [place] [address] 01/21/2023 08:10:43 01/21/2023 08:37:00 Postoperative care [id number] Z48.89 12 weeks s/p right endoscopic carpal tunnel release (DOS: 10/28/22) Carpal ki zeb syndrome [id number] G56.01 EMG/NCV (10/03/2022) demonstrat ed moderate to severe right carpal tunnel syndrome and mild left carpal tunnel syndrome. Previously s/p right endoscopic carpal tunnel release (DOS: 10/28/22) Health Concerns Section Related Observation LastModified by Organization Detai ls LastModified Time None Recorded Concern Status LastModified by Organization Details LastModified Time None Recorded Advance Directives Directive None Recorded Payers Encounter Date Sequence Insurance Name Policy Number Policy Haley Covered Member ID Haley Member ID Guarantor Name 10/08/2022 [facility] Karyna clark [facility] 10/28/2022 [facility] 11/12/2022 1 [place] [id number] You Celaya Jr [id number] 24 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 She presents to the clinic today as a Worker's Compensation evaluation for evaluation of ongoing right hand numbness and tingling in the radial three digits (carpal tunnel distribution on a Lin diagram). Symptoms first came on in June of this year while working on one of her job lined processes. Since that time reports progressive symptoms now with constant numbness in the thumb. Symptoms occur during the day and night and frequently wake her up from sleep despite use of nighttime wrist splint. States that she frequently has to shake out her hand for temporary relief (positive flick sign). Also reports progressive weakness and dexterity issues as she is dropping things more frequently. Reports occasional soreness in her left palm but no specific numbness or tingling. Treatment thus far is consisted of therapy, nighttime wrist splinting/bracing, srej-isj-wncpirz medication, and she is currently on work restrictions.Consul t requested by:Primary Care Physician: Umer Her Aprn Hand dominance: {{Right* Left ambid extrous}}Location: {{Right* Left Bilat eral}} {{Hand* Wrist Elbow Other}} Pain level: {{0 1 2 3 4 5 6 7* 8 9 10}} /10 discomfort Duration: 5 months Recent Surgery: {{Yes No*}}Procedur e:Date of surgery:Surgeon(If Known): In office procedure? {{Yes No*}} Previous upper extremity surgery? {{Yes No*}}Procedur e:Approximate date of surgery:Surgeon (if known):Have you or an immediate family member ever seen our hand surgeons before? 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 {{Yes* No}} with restrictions since 08/01 Is this injury associated with a Workers Compensation claim? {{Yes* No}} Patient arrived in: {{cast splint surgi rachel dressing OTC brace*}} Chisel Trimmer Strength: right: left: Mrs. Celaya visits us in office today for an evaluation of right CTS and discuss results of EMG. Reports severe n/t present in right hand for the last 5 months. Denies any injury that could have contributed to numbness. Denies actual pain. Has been wearing OTC since symptoms onset which does provide relief intermittently. Has been working with restrictions for last 2 months but still suffers from significant discomfort when working. HOMERO GONZALEZ MD [address] [place], [address], [facility] 10/08/2022 14:08:14 11/12/2022 text/html Patient presents today for post op follow up visit. Reports uneventful post op period. POST OP GLOBAL VISIT11/12/22DATE OF SURGERY:10/28/22TIM E POST SURGERY: 15 daysSURGERY:RIGHT ECTR PREOP SYMPTOMS{{RESOLVED BETTER* WORSE SAME} } PAIN LEVEL (VAS){{1 2 3 4 5* 6 7 8 9 10}}/10 OVERALL ASSESSMENT{{IMPROVI NG* WORSENING SAME} } MAXIMO HUERTA PA-C [address] [place], [address], [facility] 11/14/2022 15:19:07 12/10/2022 text/html Patient returns to the clinic today for postoperative evaluation. Reports resolution of numbness and tingling, however still with soreness in the palm with loading activities. POST OP GLOBAL VISIT DATE OF SURGERY: 10/28/22TIME POST SURGERY:{{10-14 DAYS 2 WKS 6 WKS* 12WKS OTHER:}} SURGERY:RIGHT ECTR PREOP SYMPTOMS{{RESOLVED BETTER* WORSE SAME} } PAIN LEVEL (VAS){{1 2 3 4 5* 6 7 8 9 10}}/10 OVERALL ASSESSMENT{{IMPROVI NG* WORSENING SAME} } Mrs. Celaya visits us in office today for a recheck. She says she feels much better but still has occasional sharp tenderness. Still working with therapy. POST OP GLOBAL VISIT DATE OF SURGERY: 10/28/22TIME POST SURGERY:{{10-14 DAYS 2 WKS 6 WKS* 12WKS OTHER:}} SURGERY:RIGHT ECTR PREOP SYMPTOMS{{RESOLVED BETTER* WORSE SAME} } PAIN LEVEL (VAS){{1 2 3* 4 5 6 7 8 9 10}}/10 OVERALL ASSESSMENT{{IMPROVI NG* WORSENING SAME} } Mrs. Celaya visits us in office today for a recheck. She says she feels much better but still has occasional sharp tenderness. Still working with therapy. HOMERO GONZALEZ MD [address] [place], [address], [facility] 12/13/2022 16:26:38 01/21/2023 text/html Patient returns to the clinic today for postoperative evaluation. Reports she is doing well with resolution of preoperative numbness and tingling. Reports no setbacks with return to work. No new complaints. POST OP GLOBAL VISIT DATE OF SURGERY: 10/28/22TIME POST SURGERY:{{10-14 DAYS 2 WKS 6 WKS 12WKS OTHER: 12 WKS#}} SURGERY:RIGHT ECTR PREOP SYMPTOMS{{RESOLVED* BETTER WORSE SAME} } PAIN LEVEL (VAS){{1 2 3 4 5 6 7 8 9 10 0#}}/10 OVERALL ASSESSMENT{{IMPROVI NG* WORSENING SAME} } Mrs. Celaya visits us in office today for a recheck S/P 12 weeks. WC. She says she feels great, has no pain. N/T is gone HOMERO GONZALEZ MD [address] [place], [address], [facility] 01/21/2023 08:37:20 OBGyn Episode No OBEpisode recorded.
--- OUTSIDE RECORDS SUMMARY | 2024-06-19 10:28 | XMS_ITS | Data Portability ---
Author Organization CHENG - Bolivar flores MD, Main Office Address [address], [facility] [address] [place] [address] Care Team Providers Care Water Safety Teacher Name Role Phone APRYL JACOB Finish Repair Worker Unavailable Assessment No assessment recorded. Plan of Treatment Reminders Order Date Submit Date Provider Last Modified By Organization Details Last Modified Time Details Appointments None record ed. Lab None record ed. Referral None record ed. Procedures None record ed. Surgeries None record ed. Imaging None record ed. Medication Orders None record ed. Patient TargetsNo targets recorded. Patient Instructions Encounter Date Encounter Id Patient Instructions Last Modified By Organization Details Last Modified Time 10/03/2022 [id number] Carpal Tunnel Syndrome: Care Instructions [email or web address] Not available 10/03/2022 14:49:58 Reason for Referral None Reported. Results Created Date Observation Date Name Description Value Unit Range Abnormal Flag Note LastModifiedBy Organization Detail LastModifiedTime 10/04/19 23 10/03/2022 elect romyo gram + nerve condu ction study No observ ation record ed. BARCODE Not Available 2022 14:55:25 Result Notes None recorded. Problems No Known Problems Procedures Surgical History Date Name Laterality Status Provider Name and Address Organization Details Recorded Time 10/03/2022 NCV/EMG completed Carter Baez MD 10/03/2022 14:48:52 Imaging Results Imaging Date Name Status LastModified by Organization Details LastModified Time 10/03/2022 electromyogram + nerve conduction study completed BARCODE Information not available 10/03/2022 14:55:25 Procedure Notes None recorded. Medical Equipment None Reported. Allergies No known drug allergies Medications Name Sig Start Date Stop Date Status Note LastModified by Organization Details LastModified Time promethazine-DM 6.25 mg-15 mg/5 mL oral syrup TAKE 5 ML BY MOUTH EVERY 6 HOURS FOR 7 DAYS active Not Available Not Available No t Available Euthyrox 25 mcg tablet TAKE 1 TABLET BY MOUTH ONCE DAILY active Not Available Not Available No t Available oseltamivir 75 mg capsule TAKE 1 CAPSULE BY MOUTH TWICE DAILY FOR 5 DAYS active Not Available Not Available No t Available levothyroxine 200 mcg tablet TAKE 1 TABLET BY MOUTH ONCE DAILY FOR 90 DAYS WITH 25 MCG active Not Available Not Available No t Available cefdinir 300 mg capsule TAKE 1 CAPSULE BY MOUTH TWICE DAILY FOR 10 DAYS active Not Available Not Available No t Available 28 mg iron-800 mcg tablet TAKE 1 TABLET BY MOUTH ONCE DAILY active Not Available Not Available No t Available Vitals None Recorded Social History None recorded. Functional Status None recorded. Mental Status None recorded. Family History Nothing Reported. Medical History No medical history recorded. Gynecological HistoryNo gynecological history recorded. Obstetrics History GPAL:G 0 P 0 0 0 0 Past Encounters Encounter ID Performer Location Encounter Start Date Encounter Closed Date Diagnosis/Indication Diagnosis SNOMED-CT Code Diagnosis ICD10 Code Diagnosis Note [id number] Carter Manuel Main Office [address] [facility], [facility] [address] [place] [address] 10/03/2022 14:08:16 10/03/2022 14:50:51 Bilateral carpal tunnel syndrome 6444409267 1642015 G56.03 Moderate to severe right, Mild left CTS. Health Concerns Section Related Observation LastModified by Organization Detai ls LastModified Time None Recorded Concern Status LastModified by Organization Details LastModified Time None Recorded Advance Directives Directive None Recorded Payers Encounter Date Sequence Insurance Name Policy Number Policy Haley Covered Member ID Haley Member ID Guarantor Name 10/03/2022 MARIA G Celaya OBGyn Episode No OBEpisode recorded.
[2024-06-19 10:46] LABS: Basophils # 0.1 K/mm3 (0-0.2); Basophils % 0.6 % (0.1-2.0); Eosinophils # 0.4 Kmm3 (0.0-0.4); Eosinophils % 5.2 % (0.1-12.0); Hematocrit 38.8 % (37.0-47.0); Hemoglobin 12.3 g/dL (12.2-16.2); Lymphocytes # 2.4 K/mm3 (0.7-4.5); Lymphocytes % 28.8 % (10-50); Mean Corpuscular HGB Conc 31.7 g/dL (31.8-35.4); Mean Corpuscular Hemoglobin 25.8 pg (27.0-31.2); Mean Corpuscular Volume 81.5 fl (81-99); Mean Platelet Volume 8.7 fl (7.4-10.4); Monocytes # 0.4 K/mm3 (0.1-1.0); Monocytes % 4.7 % (1.7-9.3); Neutrophils % 60.1 % (37.0-80.0); Nucleated Red Blood Cells # 0 10^3/uL; Nucleated Red Blood Cells % 0 %; Platelet Count 353 K/mm3 (142-424); Red Blood Count 4.76 M/mm3 (4.20-5.40); Red Cell Distribution Width 14.8 % (11.5-17.5); Red Cell Distribution Width-SD 44.2 fL; White Blood Count 8.3 K/mm3 (4.8-10.8)
[2024-06-19 11:20] LABS: Alanine Aminotransferase 23 U/L (12-78); Albumin Level 3.6 g/dl (3.5-5.0); Albumin/Globulin Ratio 1.1 (1.1-1.8); Alkaline Phosphatase 66 U/L (38-126); Anion Gap 10.2 mEq/L (5-15); Aspartate Amino Transferase 24 U/L (14-36); Bilirubin,Total 0.5 mg/dl (0.2-1.3); Blood Urea Nitrogen 11 mg/dl (7-17); Calcium 8.8 mg/dl (8.4-10.2); Carbon Dioxide 24 mmol/L (22.0-30.0); Chloride 107 mmol/L (98-107); Chol/HDL Ratio 6.1 (1-3.5); Cholesterol 202 mg/dl (140-200); Estimated Glomerular Filt Rate 69 ml/min (>60); GFR (African American) 83 ML/MIN (>60); Globulin 3.4 g/dL (1.3-3.2); Glucose 106 mg/dl (74-100); HDL Cholesterol 33 mg/dl (40-60); Potassium 4.2 mmoL/L (3.5-5.1); Sodium 137 mmol/L (136-145); Triglycerides 386 mg/dl (30-150); VLDL Cholesterol 77 mg/dL (0-40)
[2024-06-19 11:24] LABS: 25-OH Vitamin D, Total 18.3 ng/mL (30-100)
[2024-06-19 11:31] LABS: Direct LDL Cholesterol 96.26 mg/dL (100-129)
[2024-06-19 11:37] LABS: Free Thyroxine Index 2.4 ug/dL (5.93-13.13); Triiodothryronine (T3) Uptake 30 % (23.5-40.5)
== END 2024-06-19 23:59 | disposition home or self-care (01) ==
LOC: LAB 10:26
PROVIDERS: PCP Nurse Practitioner Family; Visit Provider Nurse Practitioner Obstetrics & Gynecology
DX: N92.0 Excessive and frequent menstruation with regular cycle (principal); D50.0 Iron deficiency anemia secondary to blood loss (chronic)
CPT/HCPCS: 36415; 80053; 80061; 82306; 84436; 84443; 84479; 85025

== ENCOUNTER 2024-06-28 07:47 | Outpatient (CLI) | payer BC, SELFPAY ==
--- OUTSIDE RECORDS SUMMARY | 2024-06-28 07:50 | XMS_ITS | Data Portability ---
Author Organization CHENG - Bolivar flores MD, Main Office Address [address], [facility] [address] [place] [address] Care Team Providers Care Candy Spreader Helper Name Role Phone APRYL JACOB Theatre Director Unavailable Assessment No assessment recorded. Plan of [...] By Organization Details Last Modified Time 10/03/2022 [id number] Carpal Tunnel Syndrome: Care Instructions [email or web address] Not available 10/03/2022 14:49:58 Reason for Referral [...] SNOMED-CT Code Diagnosis ICD10 Code Diagnosis Note [id number] Carter Manuel Main Office [address] [facility], [facility] [address] [place] [address] 10/03/2022 14:08:16 10/03/2022 14:50:51 Bilateral carpal tunnel syndrome [id number] G56.03 Moderate to severe right, Mild left [...]
--- OUTSIDE RECORDS SUMMARY | 2024-06-28 07:50 | XMS_ITS | Data Portability ---
Author Organization [facility] Danielle BEND CLOSED Address [address] [facility] [address] [place] [address] Care Team Providers Care Coffee Maker Servicer Name Role Phone UMER HER Primary Care Provider [phone] APRYL JACOB Mortgage Specialist [phone] Assessment Encounter Date Assessment Date Assessment LastModified [...] failed conservative management including splinting/bracing , therapy, zkya-fzn-detvmbn medication, and ongoing work restrictions. She reports [...] (PROC ) No observ ation record ed. [email or web address] Not Available 06/2022 09:19:34 Result Notes None recorded. Problems No Known Problems Procedures Surgical History Date Name Laterality Status Provider Name and Address Organization Details Recorded Time 10/29/19 23 Carpal Tunnel Release, Endoscopic - [place] [address] [place] [address], [address], [facility] 10/28/2022 08:06:25 01/13/20 19 Endoscopy Nasal; Diagnostic completed CHARLENE MATHUR MD [address] [place] [address], [phone] 01/12/2019 12:27:20 ligation of fallopian tube completed [facility] 06/10/2018 10:22:38 Cholecystectomy completed [facility] 06/10/2018 10:22:52 Thyroid Surgery completed [facility] 06/10/2018 10:23:01 Imaging Results Imaging Date Name Status LastModified by Organiz ation Details LastModified Time 10/03/2022 nerve conduction study/EMG, upper extremity (PROC) completed [email or web address] Information not available 10/04/2022 09:19:34 Procedure Notes None recorded. Medical Equipment None Reported. Allergies Allergen ID Allergen Name Allergen Category Reaction Reaction Severity Criticality Documentation Date Start Date Code Code System Note Provider Name and Address Organization Details Recorded Time 569489 acetamino phen / hydrocodo ne medicatio n Not available Not available Not available 08/04/2018 47426 2 RxNorm Esme Mouser [facility] 9 14:32:24 125881 acetamino phen / oxycodone medicatio n Not available Not available Not available 08/04/2018 92543 3 RxNorm Esme Mouser [facility] 9 14:33:27 Medications Name Sig Start [...] Updated DateTime 10/08/2022 162.56 cm 37.6 kg/m2 55778.73 g Hillary Cardoza [facility] 10/08/2022 13:48:44 Date Recorded Body height Body mass index (BMI) Body weight Provider Name and Address Organization Details Last Updated DateTime 11/12/2022 162.56 cm 37.6 kg/m2 78512.73 g [facility] 11/12/2022 10:08:29 Date Recorded Body height Body mass index (BMI) Body weight Provider Name and Address Organization Details Last Updated DateTime 12/10/2022 162.56 cm 37.6 kg/m2 41590.73 g [facility]10[facility] 09:48:45 Date Recorded Body height Body mass index (BMI) Body weight Provider Name and Address Organization Details Last Updated DateTime 01/21/2023 162.56 cm 37.6 kg/m2 91975.73 g Jeanette Clark [facility] 01/21/2023 08:13:11 Social History Question Answer Notes LastModified by Organizat ion Details LastModified Time Tobacco Smoking Status Never Smoker Alida darden [facility] 06/10/2018 10:22:26 What Was The Date [...] SNOMED-CT Code Diagnosis ICD10 Code Diagnosis Note [id number] ABDON CHOWDHURY MD NEUROSURG [facility] [address] [facility] [address] [place] [address] 06/10/2018 09:49:29 06/15/2018 11:05:33 Pituitary microadenoma 776861885 D35.2 -See below for my interpreta tion [...] in 6 months with a repeat MRI. [id number] BERNADETTE MCCANN MD ENDOCRINO [address] [place] [address] 08/04/2018 14:20:25 08/05/2018 08:03:09 Pituitary microadenoma 940540077 D35.2 33-year-ol d female patient seen in [...] e in the care of this patient. [id number] ABD[facility] [address] [facility] [address] [place] [address] 12/15/2018 10:30:27 12/15/2018 16:38:29 Pituitary macroadenoma 569380138 D35.2 -The patient returns to clinic today [...] (MRI with and CT without) pituitary labs [id number] CHARLENE MATHUR MD ENT [address] [place] [address] 01/12/2019 09:53:25 01/13/2019 09:46:32 Pituitary macroadenoma 535222779 D35.2 reviewed imaging. Agree with endoscopic approach to a transsphen oidal hypophysec tera. Discussed risks and complicati ons. Consent obtained. [id number] HOMERO GONZALEZ MD ORTHOPEDI [facility] [address] [place] [address] 10/08/2022 13:29:48 10/08/2022 14:13:37 Carpal tunnel syndrome 34378615 G56.01 EMG/NCV (10/03/2022) demonstrat ed moderate to severe right carpal tunnel syndrome and mild left carpal tunnel syndrome. [id number] MAXIMO HUERTA PA-C [facility] [address] [place] [place] [address] 11/12/2022 10:02:41 11/12/2022 10:21:21 Carpal tunnel syndrome 56488839 G56.01 EMG/NCV (10/03/2022) demonstrat ed moderate to severe right carpal tunnel syndrome and mild left carpal tunnel syndrome. s/p right endoscopic carpal tunnel release (DOS: 10/28/22) Postoperative care 54443 9007 Z48.89 s/p right endoscopic carpal tunnel release (DOS: 10/28/22) [id number] HOMERO GONZALEZ MD SURGERY SCHEDULE [address] [place] [address] 10/28/2022 06:36:27 10/28/2022 06:37:09 [id number] HOMERO GONZALEZ MD [facility]THOPEDI [facility] [address] [place] [address] 12/10/2022 09:02:53 12/10/2022 10:28:51 Postoperative care 714877645 Z48.89 6 weeks s/p right endoscopic carpal tunnel release (DOS: 10/28/22) Carpal ki zeb syndrome 54235256 G56.01 EMG/NCV (10/03/2022) demonstrat ed moderate to severe right carpal tunnel syndrome and mild left carpal tunnel syndrome. Previously s/p right endoscopic carpal tunnel release (DOS: 10/28/22) [id number] HOMERO GONZALEZ MD ORTHOPEDI [facility] [address] [place] [address] 01/21/2023 08:10:43 01/21/2023 08:37:00 Postoperative care 288868033 Z48.89 12 weeks s/p right endoscopic carpal tunnel release (DOS: 10/28/22) Carpal ki zeb syndrome 19592134 G56.01 EMG/NCV (10/03/2022) demonstrat ed moderate to [...] ID Haley Member ID Guarantor Name 10/08/2022 [facility] Karyna clark [facility] 10/28/2022 [facility] ty [facility] 11/12/2022 1 [place] [id number] You Celaya Jr [id number] 24 [facility] 12/10/2022 Critical access hospital 01/21/2023 Critical access hospital Notes Date Note Type Note Provider Name and Address Organization Details Recorded Time 10/08/2022 text/html Patient is a 37 y/o RHD 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 She presents to the clinic today as [...] is consisted of therapy, nighttime wrist splinting/bracing, qork-abj-cctmszh medication, and she is currently on work [...] hand surgeons before? 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 {{Yes* No}} with restrictions since 08/01 Is this injury associated with a Workers Compensation claim? {{Yes* No}} Patient arrived in: {{cast splint surgi rachel dressing OTC brace*}} Awning Craftsperson Strength: right: left: Mrs. Celaya visits us [...] discomfort when working. HOMERO GONZALEZ MD [address] [place], [address], [facility] 10/08/2022 14:08:14 11/12/2022 text/html Patient presents today for post op follow up visit. Reports uneventful post op period. POST OP GLOBAL VISIT11/12/22DATE OF SURGERY:10/28/22TIM E POST SURGERY: 15 daysSURGERY:RIGHT ECTR PREOP SYMPTOMS{{RESOLVED BETTER* WORSE SAME} } PAIN LEVEL (VAS){{1 2 3 4 5* 6 7 8 9 10}}/10 OVERALL ASSESSMENT{{IMPROVI NG* WORSENING SAME} } MAXIMO HUERTA PA-C [address] [place], [address], [facility] 11/14/2022 15:19:07 12/10/2022 text/html Patient returns to [...] working with therapy. HOMERO GONZALEZ MD [address] [place], [address], [facility] 12/13/2022 16:26:38 01/21/2023 text/html Patient returns to [...] N/T is gone HOMERO GONZALEZ MD [address] [place], [address], [facility] 01/21/2023 08:37:20 OBGyn Episode No OBEpisode recorded.
--- NOTE | 2024-06-28 08:00 | MM_ITS ---
PROCEDURE INFORMATION: Exam: Bilateral Screening 3D Mammography Exam date and time: 06/28/2024 8:06 AM Age: 39 years old Clinical indication: Baseline. Maternal grandmother had breast cancer. TECHNIQUE: Imaging protocol: Bilateral Screening tomosynthesis and 2D mammography including computer-aided detection (CAD) when performed. COMPARISON: No relevant prior studies available. FINDINGS: MAMMOGRAPHY: Breast composition: There are scattered areas of fibroglandular density. Mass: None. Architectural distortion: None. Calcifications: No suspicious calcifications. Asymmetric density: None. Skin thickening: None. Axillary adenopathy: None. IMPRESSION: No mammographic evidence of malignancy. Annual screening is recommended unless otherwise clinically indicated. ASSESSMENT: BI-RADS Category 1: Negative.
--- NOTE | 2024-06-28 08:30 | US_ITS ---
PROCEDURE: US TRANSVAGINAL CLINICAL INDICATION: needs 06/18/24 for heavy bleeding/anemia COMPARISON: US US TRANSVAGINAL from 04/22/[address] ABDOMEN PELVIS W CON from 05/07/2022 FINDINGS: Transvaginal sonographic images of the pelvis were obtained. UTERUS: 9.8 cm x 5.5 cmx 5.3cm anteverted with a combined endometrial thickness of 13mm. There appears to be a hyperechoic polyp at the fundus of the uterus measuring 6.1 mm x 6.8 mm A 2nd polyp is seen in the mid endometrium measuring 9.7 mm There is a fibroid in the posterior uterus measuring 3.1 cm x 2.4 cm x 2.7 cm. LEFT OVARY: 2.8 cmx1.8 cmx1.8cm with a volume of 4.8ml. There is a dominant follicle measuring 1.6 cm x 1.3 cm x 1.6 cm. RIGHT OVARY: 1.9 cmx 1.9 cmx2.4cm with a volume of 4.3ml. There are multiple small peripheral follicles. Both ovaries are seen and appear normal. Doppler flow to both ovaries are seen. There is no fluid in the cul-de-sac. IMPRESSION: 1. Anteverted, enlarged uterus. The endometrium appears normal. There appear to be 2 polyps within the endometrium. There is a polyp at the fundus that measures up to 6.8 mm and a 2nd polyp in the mid endometrium measuring 9.7 mm. 2. There is a posterior fibroid measuring 3.1 cm. 3. The left ovary contains a dominant follicle measuring 1.6 cm and the right ovary has multiple small peripheral follicles. 4. No fluid in the cul-de-sac. Dictated by: Robb Walker MD 06/28/2024 11:23 Robb Walker MD in OV 06/28/2024 11:23
== END 2024-06-28 23:59 | disposition home or self-care (01) ==
LOC: RAD 07:48
PROVIDERS: PCP Nurse Practitioner Family; Visit Provider Nurse Practitioner Obstetrics & Gynecology
DX: N92.0 Excessive and frequent menstruation with regular cycle (principal); Z12.39 Encounter for other screening for malignant neoplasm of breast
CPT/HCPCS: 76830; 77063; 77067

== ENCOUNTER 2024-10-04 15:48 | Outpatient (CLI) | payer BC, SELFPAY ==
--- OUTSIDE RECORDS SUMMARY | 2024-10-04 15:50 | XMS_ITS | Encounter Summary ---
Author Organization Healthcare Address [address] [place] [address] Care Team Providers Care Job Specification Writer Name Role Phone Stepan Nevarezah Paty ZAVALA Primary Care Provider [phone] Tato Gallagher MD Unavailable [phone] Elizabet Johnson MD Unavailable Encounter Details Date Type Department Care Team (Late st Contact Info) Description 05/26/2018 Orders Only External Location [address] [place] [address] Provider, External Social History Tobacco Use Types Packs/Day Years Used Date Smoking Tobacco: Never Assessed Comments Unknown Sex and Gender Information Value Date Recorded Sex Assigned at Not on file Legal Sex Female 6:31 PM EDT Gender Identity Not on file Sexual Orientation Not on file documented as of this encounter Plan of Treatment Not on file documented as of this encounter Procedures Procedure Name Priority Date/Time Associated Diagnosis Comments MR NEURO OUTSIDE IMAGES 05/26/2018 11:14 AM EDT documented in this encounter Results * MR NEURO OUTSIDE IMAGES (05/26/2018 11:14 AM EDT) Anatomical Region Laterality Modality Magnetic Resonan ce 05/26/2018 11:1 4 AM EDT us External Provider IMG MRI PROCEDURES Final Resul t documented in this encounter Visit Diagnoses Not on filedocumented in this encounter Additional Health Concerns Infection Onset Date Last Indicated Resolved Time COVID-19 Rule-Out 11/15/2020 11/15/2020 11/15/2020 8:15 PM EDT documented as of this encounter Care Teams Job Specification Writer Relationship Specialty Start Date End Date Myranda Nevarez APRN [address] [facility] [address] [place] [id number] PCP - General 07/14/20 Tato Gallagher MD [address] [address] Surgeon Neurosurgery 03/16/21 Elizabet Johnson MD [address] [address] Consulting Physician Neurology 05/30/21 documented as of this encounter
--- OUTSIDE RECORDS SUMMARY | 2024-10-04 15:50 | XMS_ITS | Clinical Summary ---
Author Organization [facility] Address [address] [place] [address] Care Team Providers Care Sprinkler Driver Name Role Phone Myranda Nevarez APRN Primary Care Provider [phone] Tato Gallagher MD Unavailable [phone] Elizabet Johnson MD Unavailable Allergies Active Allergy Reactions Criticality Noted Date Comments Hydrocodone Itching,Other - please document in the comment field,Fever Medium 04/19/2019 flushing; oxycodone has been OK Hydrocodone-Acetaminop hen Unknown - Patient states they do not know rxn details,Other - please document in the comment field Low 04/08/2019 Latex Rash,Itching Medium 06/19/2015 Oxycodone-Acetaminophe n Other - please document in the comment field,Rash Low 06/06/2021 Medications levothyroxine (Synthroid, Levoxyl) 25 MCG tablet 02/22/2019 Active busPIRone (Buspar) 5 MG tablet 11/20/2020 Active Euthyrox 200 MCG tablet 1 (one) time each day. 10/10/2021 Active Active Problems Problem Noted Date Diagnosed Date Morbid obesity with body mass index (BMI) of 40. 0 or higher 04/27/2021 Migraine without status migrainosus, not intract able 09/15/2020 Pituitary adenoma 09/15/2020 Lateral femoral cutaneous entrapment syndrome, r ight 09/15/2020 Cerebral aneurysm, nonruptured 09/15/2020 Aneurysm 06/08/2020 Hypothyroidism 05/28/2014 Resolved Problems Problem Noted Date Diagnosed Date Resolved Date Cerebral aneurysm, nonruptured 09/15/2020 03/30/2021 Family History Medical History Relation Name Comments Other cancer Brother Diabetes Father Hypertension Father Diabetes Father's Brother 1 Hypertension Father's Brother 2 Pancreatitis Father's Brother 3 Seizures Father's Brother 4 Heart attack Maternal Grandfather Hypertension Maternal Grandfather Breast cancer Maternal Grandmother Goiter Maternal Grandmother Hypothyroidism Maternal Grandmother Hyperlipidemia Mother's Brother 1 Hypertension Mother's Brother 2 Hyperthyroidism Mother's Brother 3 Hypothyroidism Mother's Brother 4 Diabetes Other 1 Other cancer Other 2 Heart attack Other 3 Conversions - Other Paternal Grandfather Circulation problem Diabetes Paternal Grandmother Emphysema Paternal Grandmother Relation Name Status Comments Brother Father Father's Brother 1 Father's Brother 2 Father's Brother 3 Father's Brother 4 Maternal Grandfather Maternal Grandmother Mother's Brother 1 Mother's Brother 2 Mother's Brother 3 Mother's Brother 4 Other 1 Other 2 Other 3 Paternal Grandfather Paternal Grandmother Social History Tobacco Use Types Packs/Day Years Used Date Smoking Tobacco: Never Smokeless Tobacco: Never Tobacco Cessation:Counseling Given: Not Answered Alcohol Use Standard Drinks/Week Comments No 0 (1 standard drink = 0.6 oz pur e alcohol) Comments Unknown Sex and Gender Information Value Date Recorded Sex Assigned at Not on file Legal Sex Female 6:31 PM EDT Gender Identity Not on file Sexual Orientation Not on file Last Filed Vital Signs Vital Sign Reading Time Taken Comments Blood Pressure 118/80 03/05/2024 12:17 PM EST Pulse 76 03/05/2024 12:17 PM EST Temperature 36.6 C (97.9 F) 08/02/2021 8:41 PM EDT Respiratory Rate 16 03/08/2022 11:18 AM EST Oxygen Saturation 97% 03/05/2024 12:17 PM EST Inhaled Oxygen Concentration - - Weight 108 kg (237 lb) 03/05/2024 12:17 PM EST Height 162.6 cm (5' 4 ) 03/05/2024 12:17 PM EST Body Mass Index 40.68 03/05/2024 12:17 PM EST Plan of Treatment Health Maintenance Due Date Last Done Comments [facility]-Depression Screening 1983 [facility]-Infant/Child/Adol SDOH Screenings 1985 DGO-MEIOW-64 Vaccine (#1) 06/15/1988 [facility]-Varicella Vaccines (1 of 2 - 13+ 2-dose series) 06/15/1996 HPV Vaccines (1 - 3-dose series) 06/15/1998 [facility]- SDOH Screenings 06/15/2001 [facility]-Adult SDOH Screenings 06/15/2001 [facility]-Hepatitis B Vaccines (1 of 3 - 19+ 3-dose series) 06/15/2002 [facility]-Pap Smear 06/15/2004 [facility]-Cervical Cancer Screening 06/15/2013 [facility]-HPV/Cotest 06/15/2013 [facility]-Influenza Vaccine (#1) 2024 [facility]-DTaP,Tdap,and Td Vaccine s (2 - Td or Tdap) 11/15/2028 11/15/2018 [facility]-Zoster Vaccines (1 of 2) 06/15/2033 [facility]-HIV Screening Completed 08/02/2021 [facility]-Hepatitis C Screening Completed 08/02/2021 [facility]-Obesity Intervention Completed 025, 03/08/2022 [facility]-HIB Vaccines Aged Out No longer e ligible based on patient's age to complete this topic [facility]-Hepatitis A Vaccines Aged Out No longer eligible based on patient's age to complete this topic [facility]-IPV Vaccines Aged Out No longer e ligible based on patient's age to complete this topic [facility]-Pneumococcal Vaccine: Pediatrics (0 to 5 Years) and At-Risk Patients (6 to 49 Years) Aged Out No longer eligible b ased on patient's age to complete this topic [facility]-Rotavirus Vaccines Aged Out No lo nger eligible based on patient's age to complete this topic Procedures Procedure Name Priority Date/Time Associated Diagnosis Comments HEPATITIS C ANTIBODY - ED W/REFLEX TO HCV QUANT PCR STAT 08/02/2021 4:42 PM EDT HIV 1/2 ANTIBODY/ANTIGEN SCREEN WITH REFLEX TO HIV I/II DIFFERENTIATION STAT 08/02/2021 4:42 PM EDT from Last 3 Months or Most Recently Relevant to Health Maintenance Results * HIV 1 & 2 Antibody/Antigen Screen (08/02/2021 4:42 PM EDT) HIV 1 & 2 Antibody/Anti gen Screen Nonreactive Nonreactive 08/02/2021 11:12 PM EDT [facility] Blood Venous blood specimen / Unknown Venipuncture / Unknown 08/02/2021 4:42 PM EDT 08/02/2021 5:29 PM EDT Jez Maynard MD LAB BLOOD ORDERABLES Final Res ult [facility] [address] [place] [address] * Grant Hepatitis C Antibody (08/02/2021 4:42 PM EDT) Pathologist [facility] Hepatitis C Antibody Negative Negative 08/02/2021 11:09 PM EDT HEALTHCARE LAB Blood Venous blood specimen / Unknown Venipuncture / Unknown 08/02/2021 4:42 PM EDT 08/02/2021 5:29 PM EDT Jez Maynard MD LAB BLOOD ORDERABLES Final Res ult Performing Organization Address City/[facility]/ZIP Co de Phone Number HEALTHCARE [facility] [address] [place] [address] from Last 3 Months or Most Recently Relevant to Health Maintenance Insurance ANTHEM Care Teams Sprinkler Driver Relationship Specialty Start Date End Date Myranda Nevarez APRN [address] [place], [place] [id number] PCP - General 07/14/20 Tato Gallagher MD [address] [address] Surgeon Neurosurgery 03/16/21 Elizabet Johnson MD [address] [address] Consulting Physician Neurology 05/30/21
--- OUTSIDE RECORDS SUMMARY | 2024-10-04 15:50 | XMS_ITS | Encounter Summary ---
Author Organization Healthcare Address [address] [place] [address] Care Team Providers Care Veneer Production Machine Operator Name Role Phone Myranda Nevarez APRN Primary Care Provider +1- [phone] Tato Gallagher MD Unavailable [phone] Elizabet Johnson MD Unavailable Encounter Details Date Type Department Care Team (Late st Contact Info) Description 01/05/2019 Orders Only External Location [address] [place] [address] Provider, External Social History Tobacco Use Types [...] Associated Diagnosis Comments MR NEURO OUTSIDE IMAGES 01/05/2019 11:58 AM EST documented in this encounter Results * MR NEURO OUTSIDE IMAGES (01/05/2019 11:58 AM EST) Anatomical Region Laterality Modality Magnetic Resonan ce 01/05/2019 11:5 8 AM EST us External Provider IMG MRI PROCEDURES Final Resul t documented in this encounter Visit Diagnoses Not on filedocumented in this encounter Additional Health Concerns Infection Onset Date Last Indicated Resolved Time COVID-19 Rule-Out 11/15/2020 11/15/2020 11/15/2020 8:15 PM EDT documented as of this encounter Care Teams Veneer Production Machine Operator Relationship Specialty Start Date End Date Myranda NevarezLUCAS [address] [place] [phone] PCP - General 07/14/20 Tato Gallagher MD [address] [address] Surgeon Neurosurgery 03/16/21 Elizabet Johnson MD [address] [address] Consulting Physician Neurology 05/30/21 documented as of this encounter
--- OUTSIDE RECORDS SUMMARY | 2024-10-04 15:50 | XMS_ITS | Encounter Summary ---
Author Organization Healthcare Address [address] [place] [address] Care Team Providers Care Oil Inspector Name Role Phone Stepan Nevarezah Paty ZAVALA Primary Care Provider +1- [phone] Tato Gallagher MD Unavailable [phone] Elizabet Johnson MD Unavailable Encounter Details Date Type Department Care Team (Late st Contact Info) Description 12/15/2018 Orders Only External Location [address] [place] [address] Provider, External Social History Tobacco Use Types [...] Associated Diagnosis Comments MR NEURO OUTSIDE IMAGES 12/15/2018 9:02 AM EDT documented in this encounter Results * MR NEURO OUTSIDE IMAGES (12/15/2018 9:02 AM EDT) Anatomical Region Laterality Modality Magnetic Resonan ce 12/15/2018 9:02 AM EDT us External Provider IMG MRI PROCEDURES Final Resul t documented in this encounter Visit Diagnoses Not on filedocumented in this encounter Additional Health Concerns Infection Onset Date Last Indicated Resolved Time COVID-19 Rule-Out 11/15/2020 11/15/2020 11/15/2020 8:15 PM EDT documented as of this encounter Care Teams Oil Inspector Relationship Specialty Start Date End Date Geri, Myranda LUCAS [address] [facility] [address] [place] [phone] PCP - General 07/14/20 Tato Gallagher MD [address] [address] Surgeon Neurosurgery 03/16/21 Elizabet Johnson MD [address] [address] Consulting Physician Neurology 05/30/21 documented as of this encounter
--- OUTSIDE RECORDS SUMMARY | 2024-10-04 15:50 | XMS_ITS | Referral Summary ---
Author Organization [employer] ([place], [place], [place], [place] Address [address] [place] [address] Care Team Providers Care Cell Tuber Hand Name Role Phone Unavailable Primary Care Provider Unavailabl e Social History Tobacco Use Types Packs/Day Years Used Date Smoking Tobacco: Never Assessed Comments Unknown Sex and Gender Information Value Date Recorded Sex Assigned at Female 08/28/2021 6:23 PM CDT Legal Sex Female 6:23 PM CDT Gender Identity Female 08/28/2021 6:23 PM CDT Sexual Orientation Not on file Plan of Treatment Not on file
--- OUTSIDE RECORDS SUMMARY | 2024-10-04 15:50 | XMS_ITS | Clinical Summary ---
Author Organization [employer] ([place], [place], [place], [place]) Address [address] [place] [address] Care Team Providers Care Chef Broiler Or Fry Name Role Phone Unavailable Primary Care Provider [...]
--- OUTSIDE RECORDS SUMMARY | 2024-10-04 15:50 | XMS_ITS | Encounter Summary ---
Author Organization Healthcare Address [address] [place] [address] Care Team Providers Care Pulley Man Name Role Phone Stepan Nevarezah Paty ZAVALA Primary Care Provider +1- [phone] Tato Gallagher MD Unavailable [phone] Elizabet Johnson MD Unavailable Encounter Details Date Type Department Care Team (Late st Contact Info) Description 01/05/2019 Orders Only External Location [address] [place] [address] Provider, External Social History Tobacco Use Types [...] Procedure Name Priority Date/Time Associated Diagnosis Comments CT NEURO OUTSIDE IMAGES 01/05/2019 11:23 AM EST documented in this encounter Results * CT NEURO OUTSIDE IMAGES (01/05/2019 11:23 AM EST) Anatomical Region Laterality Modality Computed Tomogra phy 01/05/2019 11:2 3 AM EST us External Provider IMG CT PROCEDURES Final Result documented in this encounter Visit Diagnoses Not on filedocumented in this encounter Additional Health Concerns Infection Onset Date Last Indicated Resolved Time COVID-19 Rule-Out 11/15/2020 11/15/2020 11/15/2020 8:15 PM EDT documented as of this encounter Care Teams Pulley Man Relationship Specialty Start Date End Date Myranda Nevarez LUCAS Newman [address] [place] [phone] PCP - General 07/14/20 Tato Gallagher MD [address] [address] Surgeon Neurosurgery 03/16/21 Elizabet Johnson MD [address] [address] Consulting Physician Neurology 05/30/21 documented as of this encounter
[2024-10-04 16:38] LABS: Hematocrit 38.8 % (37.0-47.0); Hemoglobin 11.9 g/dL (12.2-16.2); Immature Granulocytes % 0.2 %; Mean Corpuscular HGB Conc 30.7 g/dL (31.8-35.4); Mean Corpuscular Hemoglobin 22.9 pg (27.0-31.2); Mean Corpuscular Volume 74.8 fl (81-99); Nucleated Red Blood Cells % 0 %; Platelet Count 337 K/mm3 (142-424); Red Blood Count 5.19 M/mm3 (4.20-5.40); Red Cell Distribution Width-SD 39.6 fL; White Blood Count 5.6 K/mm3 (4.8-10.8)
[2024-10-04 17:44] LABS: 25-OH Vitamin D, Total 20.1 ng/mL (30-100)
[2024-10-04 17:45] LABS: Free T4 (Free Thyroxine) 1.97 ng/dl (0.78-2.19)
[2024-10-04 18:14] LABS: Hemoglobin A1C 5.3 % (4.0-6.0)
[2024-10-04 20:20] LABS: Alanine Aminotransferase 20 U/L (12-78); Albumin Level 3.9 g/dl (3.5-5.0); Albumin/Globulin Ratio 1.4 (1.1-1.8); Alkaline Phosphatase 69 U/L (38-126); Anion Gap 9.5 mEq/L (5-15); Aspartate Amino Transferase 29 U/L (14-36); Bilirubin,Total 0.4 mg/dl (0.2-1.3); Blood Urea Nitrogen 8 mg/dl (7-17); Calcium 9.3 mg/dl (8.4-10.2); Carbon Dioxide 25 mmol/L (22.0-30.0); Chloride 107 mmol/L (98-107); Cholesterol 152 mg/dl (140-200); Creatinine,Serum 0.60 mg/dl (0.52-1.04); Estimated Glomerular Filt Rate 110 ml/min (>60); GFR (African American) 133 ML/MIN (>60); Globulin 2.7 g/dL (1.3-3.2); Glucose 107 mg/dl (74-100); HDL Cholesterol 26 mg/dl (40-60); Potassium 4.5 mmoL/L (3.5-5.1); Sodium 137 mmol/L (136-145); Total Protein,Serum 6.6 g/dl (6.3-8.2); Triglycerides 257 mg/dl (30-150)
[2024-10-04 20:49] LABS: Iron 52 ug/dL (37-170)
[2024-10-04 20:51] LABS: Thyroid Stimulating Hormone 0.10 uIU/mL (0.465-4.68)
[2024-10-04 20:57] LABS: Ferritin 6.58 ng/ml (6.24-137)
[2024-10-04 20:59] LABS: Total Iron Binding Capacity 360 ug/dL (265-497)
[2024-10-04 21:10] LABS: Vitamin B12 215 pg/mL (239-931)
== END 2024-10-04 23:59 | disposition home or self-care (01) ==
LOC: LAB 15:48
PROVIDERS: PCP Nurse Practitioner Family; Visit Provider Nurse Practitioner Family
DX: D35.2 Benign neoplasm of pituitary gland (principal); E03.9 Hypothyroidism, unspecified; D50.9 Iron deficiency anemia, unspecified; R73.01 Impaired fasting glucose; E55.9 Vitamin D deficiency, unspecified; E78.2 Mixed hyperlipidemia; E53.8 Deficiency of other specified B group vitamins
CPT/HCPCS: 36415; 80053; 80061; 82306; 82607; 82728; 83036; 83540; 83550; 84146; 84439; 84443; 85025

== ENCOUNTER 2024-11-26 10:43 | Outpatient (CLI) | payer BC, SELFPAY ==
--- OUTSIDE RECORDS SUMMARY | 2024-11-26 10:46 | XMS_ITS | Encounter Summary ---
Author Organization Healthcare Address [address] [place] [address] Care Team Providers Care Smoke Room Operator Name Role Phone Stepan Nevarezah Paty ZAVALA Primary Care Provider [phone]- [phone] Tato Gallagher MD Unavailable [phone] Elizabet Johnson MD Unavailable Encounter Details Date Type Department Care Team (Late st Contact Info) Description 01/05/2019 Orders Only External Location [address] [place] [address] Provider, External Social History Tobacco Use Types [...] documented as of this encounter Care Teams Smoke Room Operator Relationship Specialty Start Date End Date Myranda Nevarez LUCAS Newman [address] [place] [phone] PCP - General 07/14/20 Tato Gallagher MD [address] [address] Surgeon Neurosurgery 03/16/21 Elizabet Johnson MD [address] [address] Consulting Physician Neurology 05/30/21 documented as of this encounter
--- OUTSIDE RECORDS SUMMARY | 2024-11-26 10:46 | XMS_ITS | Encounter Summary ---
Author Organization Healthcare Address [address] [place] [address] Care Team Providers Care Button Inspector Name Role Phone Myranda Nevarez APRN Primary Care Provider +1- [phone] Tato Gallagher MD Unavailable [phone] Elizabet Johnson MD Unavailable Encounter Details Date Type Department Care Team (Late st Contact Info) Description 01/05/2019 Orders Only External Location [address] [place] [address] Provider, External Social History Tobacco Use Types [...] documented as of this encounter Care Teams Button Inspector Relationship Specialty Start Date End Date Myranda NevarezLUCAS [address] [place] [phone] PCP - General 07/14/20 Tato Gallagher MD [address] [address] Surgeon Neurosurgery 03/16/21 Elizabet Johnson MD [address] [address] Consulting Physician Neurology 05/30/21 documented as of this encounter
--- OUTSIDE RECORDS SUMMARY | 2024-11-26 10:46 | XMS_ITS | Encounter Summary ---
Author Organization Healthcare Address [address] [place] [address] Care Team Providers Care Asp Web Developer Name Role Phone Stepan Nevarezah Paty ZAVALA Primary Care Provider +1- [phone] Tato Gallagher MD Unavailable [phone] Elizabet Johnson MD Unavailable Encounter Details Date Type Department Care Team (Late st Contact Info) Description 12/15/2018 Orders Only External Location [address] [place] [address] Provider, External Social History Tobacco Use Types [...] documented as of this encounter Care Teams Asp Web Developer Relationship Specialty Start Date End Date Geri, Myranda LUCAS [address] [facility] [address] [place] [phone] PCP - General 07/14/20 Tato Gallagher MD [address] [address] Surgeon Neurosurgery 03/16/21 Elizabet Johnson MD [address] [address] Consulting Physician Neurology 05/30/21 documented as of this encounter
--- OUTSIDE RECORDS SUMMARY | 2024-11-26 10:46 | XMS_ITS | Clinical Summary ---
Author Organization [facility] Address [address] [place] [address] Care Team Providers Care Drain Cleaner Name Role Phone Myranda Nevarez APRN Primary Care Provider +1- [phone] Tato Gallagher MD Unavailable [phone] Elizabet Johnson MD Unavailable Allergies Active [...] Date Last Done Comments [facility]-Depression Screening 1983 [facility]-/Child/Adol SDOH Screenings 1983 [id number] Vaccine (#1) 06/15/1988 [facility]-Varicella Vaccines (1 of 2 - 13+ 2-dose series) 06/15/1996 [facility]- SDOH Screenings 06/15/2001 [facility]-Adult SDOH Screenings 06/15/2001 [facility]-Hepatitis B Vaccines (1 of 3 - 19+ 3-dose series) 06/15/2002 [facility]-Pap Smear 06/15/2004 HPV Vaccines (1 - 3-dose SCD M series) 06/15/2010 [facility]-Cervical Cancer Screening 06/15/2013 [facility]-HPV/Cotest 06/15/2013 [facility]-Influenza [...] Final Res ult [facility] [address] [place] [address] * [place] Hepatitis C Antibody (08/02/2021 4:42 PM EDT) Pathologist [facility] Hepatitis C Antibody Negative Negative 08/02/2021 11:09 PM EDT HEALTHCARE [facility] Blood Venous blood specimen / Unknown Venipuncture / Unknown 08/02/2021 4:42 PM EDT 08/02/2021 5:29 PM EDT us Jez Maynard MD LAB BLOOD ORDERABLES Final Res ult Performing Organization Address City/[facility]/ZIP Co de Phone Number [facility]ALTH[facility] [address] [place] [address] from Last 3 Months or Most Recently Relevant to Health Maintenance Insurance ANTHEM Care Teams Drain Cleaner Relationship Specialty Start Date End Date Myranda Nevarez APRN [address] [place] [address] PCP - General 07/14/20 Tato Gallagher MD [address] [address] Surgeon Neurosurgery 03/16/21 Elizabet Johnson MD [address] [address] Consulting Physician Neurology 05/30/21
--- OUTSIDE RECORDS SUMMARY | 2024-11-26 10:46 | XMS_ITS | Encounter Summary ---
Author Organization Healthcare Address [address] [place] [address] Care Team Providers Care Surfacer Operator Name Role Phone Myranda Nevarez APRN Primary Care Provider +1- [phone] Tato Gallagher MD Unavailable [phone] Elizabet Johnson MD Unavailable Encounter Details Date Type Department Care Team (Late st Contact Info) Description 05/26/2018 Orders Only External Location [address] [place] [address] Provider, External Social History Tobacco Use Types [...] documented as of this encounter Care Teams Surfacer Operator Relationship Specialty Start Date End Date Myranda Nevarez APRN [address] [facility] [place] [address] [place] [phone] PCP - General 07/14/20 Tato Gallagher MD [address] [address] Surgeon Neurosurgery 03/16/21 Elizabet Johnson MD [address] [address] Consulting Physician Neurology 05/30/21 documented as of this encounter
--- NOTE | 2024-11-26 10:59 | ECG_ITS ---
APPROVED REPORT Exam: Resting ECG HR:77 bpm ECG Measurements Heart Rate 77 AXES [place] 157 P 48 QRSd 90 QRS 10 QT 410 T 46 QTc 441 Conclusion SINUS RHYTHM NORMAL ECG UNCONFIRMED REPORT Electronically signed by : Regino Oliva MD 11/27/2024 08:43:04
[2024-11-26 11:13] LABS: Hematocrit 38.7 % (37.0-47.0); Hemoglobin 11.7 g/dL (12.2-16.2); Immature Granulocytes % 0.4 %; Mean Corpuscular HGB Conc 30.2 g/dL (31.8-35.4); Mean Corpuscular Hemoglobin 22.4 pg (27.0-31.2); Mean Corpuscular Volume 74.1 fl (81-99); Nucleated Red Blood Cells % 0 %; Platelet Count 361 K/mm3 (142-424); Red Blood Count 5.22 M/mm3 (4.20-5.40); Red Cell Distribution Width-SD 41.4 fL; White Blood Count 7.9 K/mm3 (4.8-10.8)
[2024-11-26 11:29] LABS: Anion Gap 12.3 mEq/L (5-15); Blood Urea Nitrogen 11 mg/dl (7-17); Calcium 8.9 mg/dl (8.4-10.2); Carbon Dioxide 24 mmol/L (22.0-30.0); Chloride 104 mmol/L (98-107); Creatinine,Serum 0.70 mg/dl (0.52-1.04); Estimated Glomerular Filt Rate 92 ml/min (>60); GFR (African American) 112 ML/MIN (>60); Glucose 107 mg/dl (74-100); Potassium 4.3 mmoL/L (3.5-5.1); Sodium 136 mmol/L (136-145)
[2024-11-26 11:56] LABS: Benzodiazepines Screen,Urine Negative ng/ml (<200)
[2024-11-26 11:57] LABS: Amphetamine/Metha Screen,Urine Negative ng/ml (<1000); Barbiturates Screen,Urine Negative ng/ml (<200)
[2024-11-26 12:00] LABS: Methadone Screen,Urine Negative ng/ml (<300)
[2024-11-26 12:15] LABS: Phencyclidine Screen,Urine Negative ng/ml (<25)
[2024-11-26 12:17] LABS: Opiate Screen,Urine Negative ng/ml (<300)
[2024-11-26 13:26] LABS: HCG Qualitative, Serum Negative (Negative)
== END 2024-11-26 23:59 | disposition home or self-care (01) ==
LOC: PREOP 10:44
PROVIDERS: PCP Nurse Practitioner Family; Visit Provider Nurse Practitioner Obstetrics & Gynecology
DX: Z01.810 Encounter for preprocedural cardiovascular examination (principal); Z01.812 Encounter for preprocedural laboratory examination
CPT/HCPCS: 80048; 80307; 84703; 85025; 93005

== ENCOUNTER 2024-11-30 06:38 | Observation (INO) | payer BC, SELFPAY ==
[2024-11-26 13:33] VITALS: BMI 41.8
[2024-11-30] VITALS (25 sets, daily range): BP systolic 101–132; BP diastolic 69–84; PULSE 68–85; RESP 16–20; TEMP 36.3–43; O2SAT 91–98; BMI 41.8
[2024-11-30] MEDS: LACTATED RINGERS 1000ML 1,000 ML 25 ML IV (06:49)
--- NOTE | 2024-11-30 07:05 | P.PNANES_ITS ---
[facility] Disclaimer: The information contained in this section may have been updated after the patient was seen, as this information can be updated by other users. Medical History Thyroid disease Surgical History History of tubal ligation History of cholecystectomy Status post removal of thyroid nodule Family History Other Family history of cancer Social History (Updated 11/30/24 @ 06:29 by Kailyn Swartz RN) Smoking Status: Never smoker alcohol intake: never substance use type: denies use current occupational status: employed Travel in the last 8 weeks?: None Have you lived/traveled outside US in past 30 days?: No Contact w/someone who lives/traveled outside US past 30 days?: No Exposure to someone with infectious disease in past 14 days?: No Do you have a fever (greater than 100.4 F or 38 C)?: No Have you tested positive for COVID-19?: No Exposed to someone with COVID-19 in past 14 days?: No Do you have a sore throat?: No Do you have a cough?: No Do you have any weakness?: No Are you experiencing any nausea/vomitting?: No Do you have any diarrhea?: No Are you experiencing any unusual bleeding?: No Do you have any muscle aches/pain?: No Do you have any abdominal pain?: No Are you experiencing loss of taste or smell?: No [facility] Anesthesia Checklist Patient Identification Patient Identification: Arm Band Structural Data Admitted From: Home Planned Operative Procedure/s: [facility] Consent for Planned Operative Procedure(s) Verified: Yes Verified Documents: Surgical Consent and History and Physical NPO Status Verified Time NPO: 00:00 Additional verifications Anesthesia Reactions: No Hx Blood Transfusions: No Blood Transfusion Reaction: No Airway Assessment Mallampati Score:: Class II C-Spine Mobility Assessed: Yes TMJ Mobility Assessed: Yes Dentition: Good Dentition Neurological Assessment Level of Consciousness: Awake, Alert and Appropriate Anesthesia Plan Anesthesia Risk discussed: Yes Anesthesia Plan: Verified ASA Class: III Anesthesia Type: General
[2024-11-30] MEDS: 0.9 % SODIUM CHLORIDE 100 ML 200 ML IV (07:24)
[2024-11-30] MEDS: LIDOCAINE 1% W/EPI 1:100,000 20ML VIAL 20 ML (08:09)
[2024-11-30] MEDS: SODIUM CHLORIDE IRRIG SOLUTION 3,000 ML 200 ML IR (08:11)
--- NOTE | 2024-11-30 10:11 | P.OP_ITS ---
Date of procedure: 11/30/24 Pre-op Diagnosis:: Menorrhagia, endometrial polyps, uterine fibroid Post-op Diagnosis:: Menorrhagia, endometrial polyps, uterine fibroid Procedure performed:: Laparoscopically assisted vaginal hysterectomy, bilateral salpingectomy Surgeon:: Robb Walker MD Instrument Repairer Steam Plant(s):: Dr. Sheth GRINDING WHEEL OPERATOR:: Harry Estrada Anesthesia: GETA Estimated blood loss (mL): 200 Clinical Note:: She is a 39-year-old lady who complains of extremely heavy periods. She has had ultrasounds that showed endometrial polyps as well as a 3 cm posterior fibroid. After having discussed the risks and benefits she elected to have a laparoscopically assisted vaginal hysterectomy and bilateral salpingectomy. Operative findings:: She had an anteverted bulky uterus. The tubes have been previously ligated with Filshie clips. The ovaries were seen and appear normal. The rest the pelvis. Normal. Operative note:: She was taken to the operating room where general anesthesia was found be adequate. She was prepped and draped in normal sterile fashion in the semilithotomy position. A weighted speculum was placed in the vagina and the anterior lip of the cervix was grasped with a tenaculum. A Arlette uterine manipulator was then placed within the cervical os. I then changed gloves. I injected 10 cc of 0.5% ropivacaine around the umbilicus and made a small incision within the umbilicus. I inserted a Veress needle into the abdominal cavity. The abdominal cavity was then insufflated with carbon dioxide gas to a pressure of 20 mmHg. I then inserted an 11 mm trocar under direct vision. I injected through and through the pubic hairline, made a small incision here and inserted a 5 mm trocar under direct vision. I identified the inferior epigastric arteries on the left side, went lateral to these and injected through and through. I then made a small incision and inserted an 11 mm trocar under direct vision. A similar 11 mm trocar was placed on the right side. The right round ligament was then grasped and cut through with harmonic scalpel. This was followed by opening up the peritoneum anteriorly to the midline. I then grasped the tube on the right side and cut through this. This is followed by cutting through the right utero-ovarian ligament. I used Harmonic scalpel on the coagulation mode. I then took down the posterior aspect of the broad ligament to the level of the uterosacral ligament. I then skeletonized the uterine arteries on the right side and placed hemoclips on these. Using the nova rmonic scalpel on coagulation mode adjacent to the cervix I then took down these uterine arteries. I then further freed up the bladder anteriorly and laterally on the right side. I then turned my attention to the left side where I grasped the left round ligament. I then cut through the left round ligament. The left tube was then cut and this was followed by the left uterosacral ligament. I then took down the anterior peritoneum to the midline joining up with the other side. I further dissected the bladder off. The posterior aspect of the left broad ligament was then taken down with harmonic scalpel. I skeletonized the uterine arteries on the left side. I applied hemoclips to the uterine arteries and staying adjacent to the cervix on the left side I took down the uterine arteries with harmonic scalpel on coagulation mode. I further freed up the bladder. We then assured hemostasis. I then grasped the distal end of the right tube and using harmonic scalpel I cut along the mesosalpinx. The tube was removed through the 11 mm trocar site. This was similarly performed on the patient's left side. After once again assuring hemostasis we then turned our attention to the vaginal portion of the surgery. The patient was placed in the lithotomy position and a weighted speculum was placed in the vagina. The anterior and posterior lip of the cervix were grasped with Coulter tenacula. I then injected 20 cc of 1% Xylocaine with epinephrine circumferentially about the cervix. I then circumscribed the cervix. I opened up in the posterior cul-de-sac using Moore scissors. I then placed a long weighted speculum through the defect. The left uterosacral ligament was then clamped cut and suture-ligated and tagged. This was followed by the left cardinal ligament which was clamped cut and suture-ligated. I then clamped cut and suture-ligated and tagged the right uterosacral ligament. This was followed by the right cardinal ligament which was clamped cut and suture-ligated. I then grasped the anterior vaginal mucosa and using both sharp and blunt dissection dissected off the bladder. I then opened sharply into the anterior cul-de-sac. A David retractor was placed through this defect. Both left and right uterine arteries were then clamped cut and suture-ligated. This freed up the uterus and it was removed through the vagina. I then inserted a short weighted speculum. Posterior cuff was then closed using running 2-0 Vicryl suture in a locked fashion. I then placed a Sands suture using 0 PDS. I passed it through the vagina and the peritoneum and then through the left perirectal fascia. I then plicated across the posterior peritoneum and through the right perirectal fascia. This was then passed through the peritoneum and vagina and left to be tied at the end. The vaginal cuff was then closed using running 0 Vicryl suture in a locked fashion from left to right from anterior to posterior. I then placed a number of [id number] sutures across the vaginal vault to further reinforce the vault closure. A Armijo catheter was then placed in the bladder. Clear urine was seen to flow. I then changed gloves and once again insufflated the abdominal cavity with carbon dioxide gas. Hemostasis was once again assured and I rinsed the pelvis. There were a couple small areas of oozing and I elected to place hemoclips on these areas. I then sprayed Keshawn all around the pelvis. I injected approximately 20 cc of 0.5% ropivacaine into the pelvis. I let the gas out of the abdomen and once again hemostasis was assured. The secondary trochars were then removed under direct vision and the sites were hemostatic. The primary trocar and camera were removed together. No bowel was seen to follow. The 11 mm trocar sites were closed deeply with [id number] 2-0 Vicryl suture followed by running subcuticular 4-0 Monocryl suture. 5 mm trocar site was closed with subcuticular 4-0 Monocryl suture. Sterile dressings were applied. The patient tolerated procedure well and was taken to the recovery room in excellent condition. All sponge instrument and needle counts were correct. The estimated blood loss was approximately 200 cc. Condition: stable Disposition: PACU Specimens:: Uterus and fallopian tubes Complications:: None
--- NOTE | 2024-11-30 10:19 | EXP.ANES.I ---
[facility] Anesthesia Record Part I Anesthesia Record I Intake, IV Amount: 1,150 Hydration: Adequate Estimated blood loss (mL): 200 Urine output (mL): 50 Blood Products used (#): none Blood Pressure: 131/76 SaO2: 91 Pulse Rate: 85 Airway Patency: Patent Respiratory Rate: 16 Temperature: 97.4 F Patient is:: Drowsy and Stable Stable to PACU at:: 10:10
[2024-11-30] MEDS: HYDROMORPHONE 2MG/ML SYRINGE 0.5 MG IV ×4 (10:35→10:50)
[2024-11-30] MEDS: LACTATED RINGERS 1000ML 1,000 ML 125 ML IV ×2 (11:45→20:49)
[2024-11-30] MEDS: KETOROLAC 30MG/ML VIAL 30 MG IV ×2 (12:49→18:49)
[2024-11-30] MEDS: ONDANSETRON 4MG/2ML VIAL 4 MG IV (12:55)
[2024-11-30] MEDS: HYDROMORPHONE 2MG/ML SYRINGE 1 MG IV ×2 (13:30→16:42)
[2024-11-30 14:30] LABS: Microscopic,Cath URINE MICROSCOPIC (MICROSCOPIC)
--- NOTE | 2024-11-30 15:00 | PC.NURSE ---
Patient up ambulating at this time to the restroom. Done well x2 standby assist.
[2024-11-30] MEDS: HYDROMORPHONE HCL 2 MG TABLET PO ×2 (15:29→20:45)
--- NOTE | 2024-11-30 15:29 | PC.NURSE ---
lap sites x4- umbilical serosang drainage noted
--- NOTE | 2024-11-30 15:29 | PC.NURSE ---
a/o x4, lungs remains cta and bowel sounds active x4- pt tolerating diet well. Passing gas at this time. IV infusing well. SCuds in place. Pain well controlled. Family at bedside.
[2024-11-30] MEDS: CEFAZOLIN SODIUM 2 GM in 0.9 % SODIUM CHLORIDE 50 ML IV ×2 (16:01→22:42)
[2024-11-30 16:32] LABS: Hematocrit 37.4 % (37.0-47.0); Hemoglobin 11.2 g/dL (12.2-16.2)
--- NOTE | 2024-11-30 18:00 | PC.NURSE ---
Armijo removed- patient up walking the room at this time. panties and pad applied. patient night gown put on at this time. Denies any needs
[2024-11-30 19:55] LABS: Appearance,Urine/Cath CLEAR (Clear); Bilirubin,Cath Negative (Negative); Blood, Urine/Cath Negative (Negative); Color,Urine/Cath YELLOW (Yellow); Glucose,Urine/Cath (UA) Negative (Negative); Ketones,Urine/Cath TRACE (Negative); Leukocyte Esterase,Cath Negative (Negative); Nitrate,Cath Negative (Negative); PH,Urine/Cath 5.5 (5.0-8.5); Protein,Urine/Cath Negative (Negative); Specific Gravity, Urine/Cath >= 1.030 (1.005-1.030); Urobilinogen,Cath 0.2 EU/dl (0.2)
[2024-11-30] MEDS: PROMETHAZINE HCL 25MG/ML 1ML VIAL 12.5 MG IV (20:44)
[2024-11-30] MEDS: SENNOSIDES 8.6MG/DOCUSATE 50MG TABLET 1 TAB PO (20:45)
[2024-11-30] MEDS: SODIUM CHLORIDE 0.9% 25ML BAG 25 ML IV (20:45)
--- NOTE | 2024-11-30 21:00 | PC.NURSE ---
Patient ambulated with staff standby assist 1 lap around unit. tolerated well.
[2024-11-30 22:17] LABS: Squamous Epithelial Ur./Cath Occasional #/hpf (0-5)
[2024-12-01] MEDS: HYDROMORPHONE HCL 2 MG TABLET PO ×3 (00:21→13:16)
[2024-12-01 00:26] VITALS: BP 116/87; PULSE 71; RESP 16; O2SAT 95
[2024-12-01] MEDS: KETOROLAC 30MG/ML VIAL 30 MG IV ×2 (00:37→08:27)
--- NOTE | 2024-12-01 01:33 | PC.NURSE ---
Patient resting in bed, patient given and sandwich and drink. Denies any further needs. Call light within reach
[2024-12-01 04:42] VITALS: BP 111/68; PULSE 65; RESP 16; TEMP 36.9; O2SAT 95
[2024-12-01 04:45] VITALS: O2SAT 95
[2024-12-01] MEDS: LACTATED RINGERS 1000ML 1,000 ML 125 ML IV (05:02)
--- NOTE | 2024-12-01 05:20 | PC.NURSE ---
patient resting in bed, abd binder applied for comfort. Patient using spirometer. Call light within reach
[2024-12-01 06:23] LABS: Hematocrit 38.3 % (37.0-47.0); Hemoglobin 11.6 g/dL (12.2-16.2); Immature Granulocytes % 0.3 %; Mean Corpuscular HGB Conc 30.3 g/dL (31.8-35.4); Mean Corpuscular Hemoglobin 22.9 pg (27.0-31.2); Mean Corpuscular Volume 75.7 fl (81-99); Nucleated Red Blood Cells % 0 %; Platelet Count 319 K/mm3 (142-424); Red Blood Count 5.06 M/mm3 (4.20-5.40); Red Cell Distribution Width-SD 43.1 fL; White Blood Count 8.8 K/mm3 (4.8-10.8)
[2024-12-01] MEDS: HYDROMORPHONE 2MG/ML SYRINGE 1 MG IV (08:33)
[2024-12-01 08:35] VITALS: BP 130/71; PULSE 80; RESP 17; TEMP 36.9; O2SAT 95
[2024-12-01 08:46] LABS: Anion Gap 12.9 mEq/L (5-15); Blood Urea Nitrogen 7 mg/dl (7-17); Calcium 8.3 mg/dl (8.4-10.2); Carbon Dioxide 25 mmol/L (22.0-30.0); Chloride 104 mmol/L (98-107); Creatinine Clearance Estimated 91 mL/min (50-200); Creatinine,Serum 0.70 mg/dl (0.52-1.04); Estimated Glomerular Filt Rate 92 ml/min (>60); GFR (African American) 112 ML/MIN (>60); Glucose 93 mg/dl (74-100); Potassium 3.9 mmoL/L (3.5-5.1); Sodium 138 mmol/L (136-145)
--- NOTE | 2024-12-01 09:25 | PC.NURSE ---
Patient ambulated 3 times around unit with RN, pt tolerated ambulation well.
--- NOTE | 2024-12-01 10:57 | PC.NURSE ---
Pt ambulating around unit at this time with .
--- NOTE | 2024-12-01 11:02 | EXP.ANES.II ---
[facility] Anesthesia Record Part II Anesthesia Record Part II Discharge Time: 10:50 Destination: Obstetric PACU nurse assessment reviewed?: Yes Patient Condition:: Good Anesthesia Complications:: None Swallowing reflex intact?: Yes Airway Patency: Patent Cyanosis?: No Blood Pressure: 122/77 SaO2: 97 Respiratory Rate: 18 Pulse Rate: 68 Temperature: 97.4 F Mental Status: Alert & Oriented Pain level:: 10 Nausea and/or vomitting:: None Intake, IV Amount: 0 Hydration: Adequate
[2024-12-01 11:03] VITALS: BP 122/77; PULSE 68; RESP 18; TEMP 36.3; O2SAT 97
--- NOTE | 2024-12-01 14:07 | P.DS_ITS ---
General Admission date:: 11/30/24 Discharge date: 12/01/24 HPI HPI HPI: She is a 39-year-old lady who complains of extremely heavy periods. She had an ultrasound that showed polyps as well as a fibroid. After having discussed the risks and benefits she elected to have a laparoscopically assisted vaginal hysterectomy. She wanted to keep her ovaries and we did remove her fallopian tubes. Hospital Course Hospital Course Hospital Course: On November 30, 2024 she underwent a laparoscopically assisted vaginal hysterectomy and bilateral salpingectomy. Her uterus was bulky and ovaries appeared normal. She has done well postoperatively and has remained afebrile throughout her hospitalization. She is eating and drinking and ambulating. We initially had some difficulty controlling her pain but she seems to be doing much better today. She is allergic to hydrocodone and oxycodone. She denies any shortness of breath, chest pain or calf tenderness. She is voiding well. Her blood counts are stable. She will be discharged home to follow-up in our office in approximately 2 weeks time. She will continue with her home medications. She was given a prescription for Dilaudid 2 mg to take every 4-6 hours as needed for pain. She will continue with an anti-inflammatory at home as well. She will take Tylenol. She was given usual instructions with respect to limiting her activity, driving and sexual activity. She was given instructions with respect to wound care. Exam Data for Last 24 hours Vital signs and Labs for Last 24 Hours: Temp Pulse Resp BP Pulse Ox O2 Del Method O2 Flow Rate 98.4 F 80 18 130/71 95 Room Air 2 12/01/24 08:35 12/01/24 08:35 12/01/24 11:03 12/01/24 08:35 12/01/24 08:35 12/01/24 12:00 11/30/24 14:23 Laboratory Results - last 24 hr 11/30/24 09:40: Urine Color Yellow, Urine Appearance Clear, Urine pH 5.5, Ur Specific [place] >= 1.030, Urine Protein Negative, Urine Glucose (UA) Negative, Urine Ketones Trace, Urine Blood Negative, Urine Nitrate Negative, Urine Bilirubin Negative, Urine Urobilinogen 0.2, Ur Leukocyte Esterase Negative, Urine RBC None, Urine WBC None, Ur Squamous Epith Cells Occasional, Urine Bacteria None 11/30/24 16:25: Hgb 11.2 L, Hct 37.4 12/01/24 05:56: WBC 8.8, RBC 5.06, Hgb 11.6 L, Hct 38.3, MCV 75.7 L, MCH 22.9 L, MCHC 30.3 L, RDW 15.9, Plt Count 319, MPV 9.2, Neut % (Auto) 70.0, Lymph % (Auto) 23.8, [place] % (Auto) 5.0, Eos % (Auto) 0.7, Baso % (Auto) 0.2, Neut # (Auto) 6.1, Lymph # (Auto) 2.1, [place] # (Auto) 0.4, Eos # (Auto) 0.1, Baso # (Auto) 0.0, Sodium 138, Potassium 3.9, Chloride 104, Carbon Dioxide 25, Anion Gap 12.9, BUN 7, Creatinine 0.70, Estimated Creat Clear 91, Estimated GFR 92, Est GFR ( Amer) 112, Glucose 93, Calcium 8.3 L I & O for Last 24 hours: Intake & Output 11/29/24 11/30/24 12/01/24 12/02/24 11:59 11:59 11:59 11:59 Intake Total 1250 / 1250 3050 / 3050 Output Total 1400 / 1700 300 / 300 Balance 1250 / 1250 1650 / 1350 -300 / -300 Weight 244 lb Constitutional Constitutional: no acute distress *Routine HEENT Exam Head: Present normocephalic *Routine Neck Exam Neck: Present full ROM *Routine Respiratory Exam Respiratory: Present CTA bilaterally and normal respiratory effort; Absent accessory muscle use *Routine Cardiovascular Exam Cardiovascular: Present RRR *Routine Abdominal Exam Abdominal: Present soft, normoactive bowel sounds and tenderness; Absent distended or rebound Comments: Her incisions are clean and dry. Results Data Completed and Pending Labs on day of discharge: Labs from last 24 hours 12/01/24 11/30/24 11/30/24 05:56 16:25 09:40 WBC 8.8 RBC 5.06 Hgb 11.6 L 11.2 L Hct 38.3 37.4 MCV 75.7 L MCH 22.9 L MCHC 30.3 L RDW 15.9 Plt Count 319 MPV 9.2 Neut % (Auto) 70.0 Lymph % (Auto) 23.8 [place] % (Auto) 5.0 Eos % (Auto) 0.7 Baso % (Auto) 0.2 Neut # (Auto) 6.1 Lymph # (Auto) 2.1 [place] # (Auto) 0.4 Eos # (Auto) 0.1 Baso # (Auto) 0.0 Sodium 138 Potassium 3.9 Chloride 104 Carbon Dioxide 25 Anion Gap 12.9 BUN 7 Creatinine 0.70 Estimated Creat Clear 91 Estimated GFR 92 Est GFR ( Amer) 112 Glucose 93 Calcium 8.3 L Urine Color Yellow Urine Appearance Clear Urine pH 5.5 Ur Specific [place] >= 1.030 Urine Protein Negative Urine Glucose (UA) Negative Urine Ketones Trace Urine Blood Negative Urine Nitrate Negative Urine Bilirubin Negative Urine Urobilinogen 0.2 Ur Leukocyte Esterase Negative Urine RBC None Urine WBC None Ur Squamous Epith Cells Occasional Urine Bacteria None DS: Diagnosis Discharge Diagnosis (1) Intramural uterine fibroid: Status: Acute Code(s): D25.1 - Intramural leiomyoma of uterus (2) Abnormal uterine bleeding due to endometrial polyp: Status: Acute Code(s): N93.9 - Abnormal uterine and vaginal bleeding, unspecified; N84.0 - Polyp of corpus uteri (3) Menorrhagia: Status: Acute Code(s): N92.0 - Excessive and frequent menstruation with regular cycle Qualifiers: Menorrhagia type: with regular cycle Qualified Code(s): N92.0 - Excessive and frequent menstruation with regular cycle (4) Morbid obesity: Status: Acute Code(s): E66.01 - Morbid (severe) obesity due to excess calories (5) Anemia: Status: Acute Code(s): D64.9 - Anemia, unspecified Qualifiers: Anemia type: iron deficiency Iron deficiency anemia type: chronic blood loss Qualified Code(s): D50.0 - Iron deficiency anemia secondary to blood loss (chronic) Meds Home Medications and Allergies Home Medications ?Medication ?Instructions ?Recorded ?Confirmed ?Type ergocalciferol (vitamin D2) 1,250 1,250 mcg PO WEEKLY 09/08/24 11/30/24 History mcg (50,000 unit) capsule levothyroxine 200 mcg tablet 225 mcg PO DAILY 09/08/24 11/30/24 History hydromorphone 2 mg tablet 2 mg PO Q6H PRN pain #20 tab s 12/01/24 Rx New Prescriptions to Start Prescriptions: hydromorphone Robb Walker Allergies Allergy/AdvReac Type Severity Reaction Status Date / Time latex Allergy Intermediate I-ITCHING Verified 11/30/24 06:45 hydrocodone (From LORTAB) Allergy Mild fever Verified 11/30/24 06:45 acetaminophen (From Percocet) AdvReac Hives Verified 11/30/24 06:45 oxycodone (From Percocet) AdvReac Hives Verified 11/30/24 06:45 Discharge Plan Disposition Patient Disposition: Home, Self-Care Follow up Plan Prescriptions/Medication Reconciliation: New hydromorphone 2 mg tablet 2 mg PO Q6H PRN (Reason: pain) Qty: 20 0RF Continued levothyroxine 200 mcg tablet 225 mcg PO DAILY Patient Comments: TAKE 1 TABLET BY MOUTH ONCE DAILY ergocalciferol (vitamin D2) 1,250 mcg (50,000 unit) capsule 1,250 mcg PO WEEKLY Patient Comments: TAKE 1 CAPSULE BY MOUTH ONCE A WEEK Problem Reconciliation Problems Reviewed?: Yes Patient Discharge Instructions ACTIVITY: No heavy lifting DIET: continue same diet Patient Instructions: Laparoscopic Hysterectomy, DI for Vaginal Hysterectomy Print Language: [place] Providers Primary Care Provider: Myranda Nevarez Admit Provider: Robb Walker Attending Provider: Robb Walker
--- NOTE | 2024-12-01 16:52 | EXP.HP ---
History of Present Illness *History of present illness: She is a 39-year-old lady who complains of extremely heavy periods. She had an ultrasound that showed polyps as well as a fibroid. After having discussed the risks and benefits she elected to have a laparoscopically assisted vaginal hysterectomy. She wanted to keep her ovaries and we did remove her fallopian tubes. [facility] Disclaimer: The information contained in this section may have been updated after the patient was seen, as this information can be updated by other users. Medical History Thyroid disease Surgical History History of tubal ligation History of cholecystectomy Status post removal of thyroid nodule Family History Family history of cancer Social History Smoking Status: Never smoker alcohol intake: never substance use type: denies use current occupational status: employed Travel in the last 8 weeks?: None Other Medical History Have you received the Flu Vaccine for this season: No Have you received the Pneumonia Vaccine: No Review of Systems Review of Systems Review of systems:: pertinent systems reviewed and negative unless documented below Meds Home Medications and Allergies Home Medications ?Medication ?Instructions ?Recorded ?Confirmed ?Type ergocalciferol (vitamin D2) 1,250 1,250 mcg PO WEEKLY 09/08/24 11/30/24 History mcg (50,000 unit) capsule levothyroxine 200 mcg tablet 225 mcg PO DAILY 09/08/24 11/30/24 History hydromorphone 2 mg tablet 2 mg PO Q6H PRN pain #20 tabs 12/01/24 Rx New Prescriptions to Start Prescriptions: hydromorphone Robb Walker Allergies Allergy/AdvReac Type Severity Reaction Status Date / Time latex Allergy Intermediate I-ITCHING Verified 11/30/24 06:45 hydrocodone (From LORTAB) Allergy Mild fever Verified 11/30/24 06:45 acetaminophen (From Percocet) AdvReac Hives Verified 11/30/24 06:45 oxycodone (From Percocet) AdvReac Hives Verified 11/30/24 06:45 Exam Data for Last 24 hours Vital signs and Labs for Last 24 Hours: Temp Pulse Resp BP Pulse Ox O2 Del Method O2 Flow Rate 98.4 F 80 18 130/71 95 Room Air 2 12/01/24 08:35 12/01/24 08:35 12/01/24 11:03 12/01/24 08:35 12/01/24 08:35 12/01/24 14:46 11/30/24 14:23 Laboratory Results - last 24 hr 11/30/24 09:40: Urine Color Yellow, Urine Appearance Clear, Urine pH 5.5, Ur Specific [place] >= 1.030, Urine Protein Negative, Urine Glucose (UA) Negative, Urine Ketones Trace, Urine Blood Negative, Urine Nitrate Negative, Urine Bilirubin Negative, Urine Urobilinogen 0.2, Ur Leukocyte Esterase Negative, Urine RBC None, Urine WBC None, Ur Squamous Epith Cells Occasional, Urine Bacteria None 12/01/24 05:56: WBC 8.8, RBC 5.06, Hgb 11.6 L, Hct 38.3, MCV 75.7 L, MCH 22.9 L, MCHC 30.3 L, RDW 15.9, Plt Count 319, MPV 9.2, Neut % (Auto) 70.0, Lymph % (Auto) 23.8, [place] % (Auto) 5.0, Eos % (Auto) 0.7, Baso % (Auto) 0.2, Neut # (Auto) 6.1, Lymph # (Auto) 2.1, [place] # (Auto) 0.4, Eos # (Auto) 0.1, Baso # (Auto) 0.0, Sodium 138, Potassium 3.9, Chloride 104, Carbon Dioxide 25, Anion Gap 12.9, BUN 7, Creatinine 0.70, Estimated Creat Clear 91, Estimated GFR 92, Est GFR ( Amer) 112, Glucose 93, Calcium 8.3 L I & O for Last 24 hours: Intake & Output 11/29/24 11/30/24 12/01/24 12/02/24 11:59 11:59 11:59 11:59 Intake Total 1250 / 1250 3050 / 3050 Output Total 1400 / 1700 300 / 300 Balance 1250 / 1250 1650 / 1350 -300 / -300 Weight 244 lb Constitutional Constitutional: no acute distress *Routine HEENT Exam Head: Present normocephalic Eye: Present EOMI and PERRL ENT: Present mucous membranes moist *Routine Neck Exam Neck: Present supple; Absent lymphadenopathy *Routine Respiratory Exam Respiratory: Present CTA bilaterally *Routine Cardiovascular Exam Cardiovascular: Present RRR *Routine Abdominal Exam Abdominal: Present soft and normoactive bowel sounds; Absent tenderness *Routine Rectal Exam Rectal:: deferred *Routine Genitalia Exam Genitalia:: deferred *Routine Extremities Exam Extremities: Absent cyanosis, clubbing or edema *Routine Skin Exam Skin: Present warm; Absent rash *Routine Neurological Exam Neurological: Present alert and oriented X3 Assessment and Plan *Assessment and plan (1) Anemia: Status: Acute Qualifiers: Anemia type: iron deficiency Iron deficiency anemia type: chronic blood loss Qualified Code(s): D50.0 - Iron deficiency anemia secondary to blood loss (chronic) Category: Medical Code(s): D64.9 - Anemia, unspecified (2) Intramural uterine fibroid: Status: Acute Category: Medical Code(s): D25.1 - Intramural leiomyoma of uterus (3) Abnormal uterine bleeding due to endometrial polyp: Status: Acute Category: Medical Code(s): N93.9 - Abnormal uterine and vaginal bleeding, unspecified; N84.0 - Polyp of corpus uteri (4) Menorrhagia: Status: Acute Qualifiers: Menorrhagia type: with regular cycle Qualified Code(s): N92.0 - Excessive and frequent menstruation with regular cycle Category: Medical Code(s): N92.0 - Excessive and frequent menstruation with regular cycle (5) Morbid obesity: Status: Acute Category: Medical Code(s): E66.01 - Morbid (severe) obesity due to excess calories Plan She is admitted for laparoscopically assisted vaginal hysterectomy and bilateral salpingectomy.
== END 2024-12-01 15:45 | disposition home or self-care (01) ==
LOC: OB 13:34
PROVIDERS: Admitting Provider Nurse Practitioner Obstetrics & Gynecology; PCP Nurse Practitioner Family; Visit Provider Nurse Practitioner Obstetrics & Gynecology
PROC: 0UT9FZZ Resection of Uterus, Via Natural or Artificial Opening With Percutaneous Endoscopic Assistance (ICD-10-PCS; CPT 58552; principal; 2024-11-30 07:30)
DX: N72 Inflammatory disease of cervix uteri (principal); N84.0 Polyp of corpus uteri; D25.1 Intramural leiomyoma of uterus; N80.03 Adenomyosis of the uterus; N93.9 Abnormal uterine and vaginal bleeding, unspecified; N92.0 Excessive and frequent menstruation with regular cycle; D50.0 Iron deficiency anemia secondary to blood loss (chronic); E66.01 Morbid (severe) obesity due to excess calories; E07.9 Disorder of thyroid, unspecified; Z91.040 Latex allergy status; Z68.41 Body mass index [BMI] 40.0-44.9, adult; Z88.5 Allergy status to narcotic agent; Z88.6 Allergy status to analgesic agent; Z79.890 Hormone replacement therapy
CPT/HCPCS: 58552; 36415; 51702; 80048; 81001; 85014; 85018; 85025; 86850; 96361; 96365; 96374; 96375; 96376; G0378; J0690; J1100; J1171; J1650; J1885; J2003; J2004; J2250; J2405; J2550; J2704; J2795; J3010; J7120